=== PATIENT | male | born 1965 | race Caucasian/White ===

== ENCOUNTER 2020-05-17 10:00 | Outpatient (RCR) | payer MEDICARE, MEDICAID, SELFPAY ==
--- NOTE | 2020-05-17 14:48 | MHC.OT.DC ---
[address] [phone] F: [phone] Occupational Therapy Discharge Note Provider: Orestes Joy Diagnosis: R HAND OA Date of Surgery: Date of Evaluation: 04/20/20 Date of Discharge: 05/17/20 Treatments to Date: 5 Discharge Status: Achieved Goals Improved Function Independent with HEP Discharge Summary: MR. LORA WAS SEEN AND PROVIDED WITH EDUCATION ON OA MANAGEMENT. OVERALL, HIS FUNCTIONAL ABILITIES AND STRENGTH INCREASED. HE WAS INSTRUCTED ON JOINT PROTECTION AND ACTIVITY MODIFICATION WITH DAILY ACTIVITIES. HE REPORTS INTEREST IN PURCHASING A HOME PARAFFIN UNIT AND KINESIOTAPE FOR SELF TAPING, RIGHT INDEX AND MIDDLE FINGER. FABRICATION OF PIP BLOCKING SPLINTS WAS ALSO TRIALED FOR NIGHT WEAR. NO FURTHER OT SERVICES INDICATED AT THIS TIME. D/C TO HOME MAINTENANCE PROGRAM. Electronically Signed By: ERIC BASILIO M.ED, OTR/L Please Sign and return to therapist, thank you for your referral.
== END 2020-05-19 08:35 | disposition other institution (70) ==
LOC: HO.OT 10:00
PROVIDERS: PCP Internal Medicine; Visit Provider Student in an Organized Health Care Education/Training Program
DX: M19.041 Primary osteoarthritis, right hand (principal); M19.042 Primary osteoarthritis, left hand
CPT/HCPCS: 29130; 97035; 97110; 97760

== ENCOUNTER 2020-06-07 08:09 | Outpatient (REF) | payer MEDICARE, MEDICAID, SELFPAY ==
[2020-06-07 10:11] LABS: MANUAL DIFF FLAG NO
[2020-06-07 10:26] LABS: Basophils Percent Auto 0.8 % (0-2); Eosinophils Absolute Auto 0.2 X10*3/uL (0.0-0.4); Eosinophils Percent Auto 4.7 % (0-4); Hematocrit 40.9 % (42-52); Hemoglobin 13.5 g/dl (14.0-18.0); Imm Gran Abs Auto 0.01 X10*3/uL (0.00-0.03); Imm Gran Pct Auto 0.3 % (0.0-0.4); Lymphocytes Absolute Auto 1.3 X10*3/uL (1.2-4.9); Lymphocytes Percent Auto 33.3 % (20-40); Mean Corpuscular Hemoglobin 30.7 pg (27.0-33.0); Mean Platelet Volume 11.1 fL (9.4-12.4); Monocytes Absolute Auto 0.5 X10*3/uL (0.1-1.2); Monocytes Percent Auto 11.9 % (2-11); Neutrophils Absolute Auto 1.9 X10*3/uL (2.0-8.3); Platelet Count 212 X10*3/uL (160-400); Red Cell Distribution Width 12.3 % (11.0-16.0); White Blood Count 3.9 X10*3/uL (4.8-10.8)
[2020-06-07 10:59] LABS: Alanine Aminotransferase 24 U/L (0-40); Albumin Level 4.1 g/dL (3.5-5.0); Alkaline Phosphatase 67 U/L (39-117); Anion Gap 11 (12-20); Aspartate Amino Transferase 23 U/L (5-37); Bilirubin Total 1.1 mg/dL (0.0-1.0); Blood Urea Nitrogen 12 mg/dL (9-16); Calcium 8.7 mg/dL (8.4-10.2); Carbon Dioxide 27 mmol/L (22-29); Chloride 104 mmol/L (96-108); Cholesterol 104 mg/dL; Estimated Glomerular Filt Rate > 60; Glucose Fasting 81 mg/dL (60-99); HDL Cholesterol 53 mg/dL; LDL Cholesterol Calculated 43 mg/dl; Potassium 4.2 mmol/l (3.3-5.1); Sodium 138 mmol/L (135-145); Total Protein 6.6 g/dL (6.5-8.0); Triglycerides 43 mg/dL
== END 2020-06-07 08:10 | disposition home or self-care (01) ==
LOC: HO.10HDL 08:09
PROVIDERS: Visit Provider Internal Medicine
DX: E11.9 Type 2 diabetes mellitus without complications (principal)
CPT/HCPCS: 36415; 80053; 80061; 85025

== ENCOUNTER 2020-10-22 08:42 | Outpatient (REF) | payer MEDICARE, MEDICAID, SELFPAY ==
[2020-10-22 10:56] LABS: Cholesterol 105 mg/dL; HDL Cholesterol 48 mg/dL; LDL Cholesterol Calculated 48 mg/dl; Triglycerides 48 mg/dL
== END 2020-10-22 08:43 | disposition home or self-care (01) ==
LOC: HO.10HDL 08:42
PROVIDERS: Visit Provider Internal Medicine
DX: E11.9 Type 2 diabetes mellitus without complications (principal)
CPT/HCPCS: 36415; 80061

== ENCOUNTER 2020-12-30 14:42 | Outpatient (REF) | payer MEDICARE, MEDICAID, SELFPAY ==
[2020-12-30 16:12] LABS: Alanine Aminotransferase 25 U/L (0-40); Albumin Level 4.1 g/dL (3.5-5.0); Alkaline Phosphatase 62 U/L (39-117); Anion Gap 11 (12-20); Aspartate Amino Transferase 23 U/L (5-37); Bilirubin Total 0.7 mg/dL (0.0-1.0); Blood Urea Nitrogen 16 mg/dL (9-16); Carbon Dioxide 27 mmol/L (22-29); Chloride 104 mmol/L (96-108); Estimated Glomerular Filt Rate > 60; Glucose Random 97 mg/dL (60-115); Potassium 4.1 mmol/L (3.3-5.1); Sodium 138 mmol/L (135-145); Total Protein 6.5 g/dL (6.5-8.0); Uric Acid 3.5 mg/dL (3.4-7.0)
== END 2020-12-30 14:43 | disposition home or self-care (01) ==
LOC: HO.LAB 14:42
PROVIDERS: PCP Internal Medicine; Visit Provider Student in an Organized Health Care Education/Training Program
DX: M10.9 Gout, unspecified (principal)
CPT/HCPCS: 36415; 80053; 84550

== ENCOUNTER 2021-02-28 08:16 | Outpatient (REF) | payer MEDICARE, MEDICAID, SELFPAY ==
[2021-02-28 08:48] LABS: MANUAL DIFF FLAG NO
[2021-02-28 08:59] LABS: Eosinophils Absolute Auto 0.3 X10*3/uL (0.0-0.4); Hematocrit 40.6 % (42-52); Hemoglobin 13.7 g/dl (14.0-18.0); Imm Gran Abs Auto 0.01 X10*3/uL (0.00-0.03); Imm Gran Pct Auto 0.3 % (0.0-0.4); Lymphocytes Absolute Auto 1.4 X10*3/uL (1.2-4.9); Lymphocytes Percent Auto 34.6 % (20-40); Mean Corpuscular HGB Conc 33.7 g/dl (31.0-36.0); Mean Corpuscular Hemoglobin 31.1 pg (27.0-33.0); Mean Corpuscular Volume 92.3 fL (80-98); Mean Platelet Volume 10.9 fL (9.4-12.4); Monocytes Absolute Auto 0.4 X10*3/uL (0.1-1.2); Monocytes Percent Auto 9.8 % (2-11); Neutrophils Absolute Auto 1.9 X10*3/uL (2.0-8.3); Neutrophils Percent Auto 46.3 % (45-73); Platelet Count 188 X10*3/uL (160-400); Red Cell Distribution Width 12.4 % (11.0-16.0)
[2021-02-28 09:35] LABS: Alanine Aminotransferase 25 U/L (0-40); Albumin Level 3.9 g/dL (3.5-5.0); Alkaline Phosphatase 63 U/L (39-117); Anion Gap 10 (12-20); Aspartate Amino Transferase 24 U/L (5-37); Bilirubin Total 0.8 mg/dL (0.0-1.0); Blood Urea Nitrogen 10 mg/dL (9-16); Calcium 9.4 mg/dL (8.4-10.2); Carbon Dioxide 27 mmol/L (22-29); Chloride 106 mmol/L (96-108); Cholesterol 109 mg/dL; Estimated Glomerular Filt Rate > 60; Glucose Fasting 89 mg/dL (60-99); HDL Cholesterol 51 mg/dL; LDL Cholesterol Calculated 50 mg/dl; Potassium 4.4 mmol/L (3.3-5.1); Sodium 139 mmol/L (135-145); Total Protein 6.7 g/dL (6.5-8.0); Triglycerides 43 mg/dL
== END 2021-02-28 08:17 | disposition home or self-care (01) ==
LOC: HO.LAB 08:16
PROVIDERS: PCP Internal Medicine; Visit Provider Internal Medicine
DX: Z00.00 Encounter for general adult medical examination without abnormal findings (principal); E11.9 Type 2 diabetes mellitus without complications
CPT/HCPCS: 36415; 80053; 80061; 85025

== ENCOUNTER 2021-03-18 09:34 | Outpatient (REF) | payer MEDICARE, MEDICAID, SELFPAY ==
[2021-03-18 11:43] LABS: Prostate Specific Antigen 1.72 ng/mL (<0.05-4.0)
== END 2021-03-18 09:35 | disposition home or self-care (01) ==
LOC: HO.LAB 09:34
PROVIDERS: PCP Nurse Practitioner Family; Visit Provider Nurse Practitioner Family
DX: Z12.5 Encounter for screening for malignant neoplasm of prostate (principal)
CPT/HCPCS: 36415; 84153

== ENCOUNTER → 2021-04-28 10:08 | Outpatient (BNVA) | payer MEDICARE, MEDICAID, SELFPAY | PROVIDERS: PCP Internal Medicine; Referring Provider Internal Medicine; Visit Provider Nurse Practitioner Family | DX: M89.49 Other hypertrophic osteoarthropathy, multiple sites (principal) | CPT/HCPCS: 99212 ==

== ENCOUNTER 2021-09-20 08:07 | Outpatient (REF) | payer MEDICARE, MEDICAID, SELFPAY ==
[2021-09-20 10:30] LABS: Cholesterol 130 mg/dL; HDL Cholesterol 62 mg/dL; LDL Cholesterol Calculated 59 mg/dl; Triglycerides 47 mg/dL
== END 2021-09-20 08:08 | disposition home or self-care (01) ==
LOC: HO.10HDL 08:07
PROVIDERS: Visit Provider Internal Medicine
DX: Z00.00 Encounter for general adult medical examination without abnormal findings (principal)
CPT/HCPCS: 36415; 80061

== ENCOUNTER → 2021-12-06 10:14 | Outpatient (REF) | payer MEDICARE, MEDICAID, SELFPAY ==
--- NOTE | 2021-12-06 10:18 | CA_ITS ---
Acquisition Time: 2021-12-06 10:30:10 Total Exercise Time: 00:08:01 Test Indications: CP Medications: SEE CHART Protocol: RAUL Max HR: 136 BPM 83% of Pred: 162 BPM Max BP: 184/038 mmHG Max Work Load: 10.1 METS Exercise stress test with exercise 8 min 1 sec of Raul protocol, achieving 84% MPHR, with report of 3/10 mid chest tightness, mild sob, lreport of ightheadedness at peak, with ioccassional isolated during exercise, increasing ventricular ectopy in stage 3 with ventricular cuplet and triplet at peak exercise, then ventricular trigeminy in early recovery with another ventricular triplet at 2 min recovery, then PVCs go back to occassional, with normotensive response to exercise, without EKG changes meeting criteria for ischemia at acheived workload. In recovery his chest tightness gradually lessened and resolved by 10 min. Test reviewed with Dr Boss. Msg sent to his PCP with report and recommendation for nuclear stress test for further evaluation for ischemia. Referred By: Raysa Damon Overread By: ROSHAN DUNLAP
== END ==
LOC: HO.CARD 10:14
PROVIDERS: PCP Internal Medicine; Visit Provider Nurse Practitioner Family
DX: R07.89 Other chest pain (principal)
CPT/HCPCS: 93017

== ENCOUNTER → 2022-01-03 08:59 | Outpatient (REF) | payer MEDICARE, MEDICAID, SELFPAY ==
--- NOTE | ~2022-01-03 | NM_ITS ---
Myocardial perfusion study Indication: Chest pain to evaluate for myocardial ischemia Technique: The patient was brought in for a Lexiscan perfusion study on 01/03/2022. Patient performed low-level exercise and was injected 0.4 mg of Lexiscan intravenously. Within a minute of injection, 35 mCi of sestamibi was given intravenously. Images were obtained using the SPECT gamma camera interlaced with the gating device. Images were obtained in supine position. Resting perfusion study was performed on 01/05/2022. Patient was administered 35 mCi of sestamibi intravenously at rest. Images were then obtained in supine position. Images obtained with and without CT attenuation. Total DLP 102 mGy-cm. Images were processed with the software and compared side to side in short axis, horizontal long axis and vertical long axis views. Findings: The stress perfusion study showed non attenuated images show mildly reduced uptake in the mid and apical portion of inferior wall and moderate to severely reduced uptake in the basal inferior wall as well as moderately reduced uptake in the apex and mildly reduced uptake in the inferoseptal wall of the LV myocardium. Attenuation corrected images show normalized uptake in the inferior wall and moderately reduced uptake in the apex of the LV myocardium.. The gated study shows low normal LV systolic function with calculated LVEF of 53%. LV cavity is mildly dilated size. The gated study shows normal wall thickening and contraction of segments. Resting study shows no change in perfusion pattern compared to stress perfusion study. Gating at rest reveals normal systolic wall motion with ejection fraction at 44%. The findings are consistent with no clear reversible defect suggestive. Fixed defect may suggest nontransmural infarct although attenuation artifact is also likely.. NM/NM cardiolite stress test Impression: 1. Myocardial perfusion imaging study shows no evidence of ischemia 2. Gated LVEF is 53% with stress and 44% at rest 3. Transient ischemic dilatation not present EKG is nondiagnostic for ischemia
--- NOTE | 2022-01-03 09:01 | CA_ITS ---
Acquisition Time: 2022-01-03 09:06:38 Total Exercise Time: 00:02:00 Test Indications: Abnormal Treadmill Test Medications: ALLOPURINOL ASA ARPIPRAZOLE ATORVASTATIN LISINOPRIL LORATADINE Protocol: LEXISCAN Max HR: 094 BPM 58% of Pred: 162 BPM Max BP: 124/066 mmHG Max Work Load: 1.6 METS Pharmacological stress test with Lexiscan injection, while walking slow on treadmill, with report of 4/10 chest tightness, with occassional isolated PVC, with normotensive response to injection, with nondiagnostic EKG for ischemia. In recovery he was treated with Aminophylline 75mg IVP to reverse Lexiscan with resolution of chest tightness. Nuclear images pending. Test reviewed with Dr Carcamo. Referred By: Raysa Damon Overread By: ROSHAN DUNLAP
== END ==
LOC: HO.CARD 08:59
PROVIDERS: PCP Internal Medicine; Visit Provider Nurse Practitioner Family
DX: R07.89 Other chest pain (principal)
CPT/HCPCS: 78452; 93017; A9500; J0280; J2785

== ENCOUNTER → 2022-01-23 07:19 | Outpatient (REF) | payer MEDICARE, MEDICAID, SELFPAY ==
--- NOTE | 2022-01-23 07:22 | CA_ITS ---
Transthoracic Echocardiogram Patient (Last, First, Middle): Shamir Oconnell O Gender: Male Date of : 1965 Age: 56 Procedure Date: 01/23/2022 Procedure Type: Transthoracic Echocardiogram Location: OP Height: 185.42 cm Weight: 95.71 kg BSA: 2.20 m2 Heart Rate: bpm BP: 114 / 85 mmHg Appliance Service Technician: TO/YR Referring MD: Bell Ayala RIFLE CASE REPAIRER-C Symptoms: R07.89 - Other chest pain Study Quality: Fair ECG Rhythm: Sinus Conclusions: - The left ventricular systolic function is mildly decreased. The visually estimated ejection fraction is between 40-45%. - Moderately increased right ventricular cavity size. - No obvious valvular pathology seen on this study. Findings Left Ventricle Normal left ventricular cavity size. There is normal left ventricular wall thickness. The left ventricular systolic function is mildly decreased. The visually estimated ejection fraction is between 40-45%. There is mild global hypokinesis. Diastolic function is normal for age. Right Ventricle Moderately increased right ventricular cavity size. There is normal right ventricular systolic function. Atria Both atria are normal in size. Aortic Valve There is a normal trileaflet aortic valve. There is no aortic valve stenosis. There is no aortic valve regurgitation. Mitral Valve The mitral valve appears normal. There is trace mitral valve regurgitation. There is no mitral valve stenosis. Pulmonic Valve The pulmonic valve is likely normal. Tricuspid Valve There is trace tricuspid valve regurgitation. The pulmonary artery systolic pressure is normal. Great Vessels The asc aorta and aortic arch are normal in size. Venous The inferior vena cava was not well visualized. The inferior vena cava is normal in size. Pericardium/Pleural There is no evidence of pericardial effusion. Prior Study Comparison Changes noted compared to prior study dated: 02/24/2010. Decrease in LVEF. Recommendations, Care & Conclusions No obvious valvular pathology seen on this study. Measurements 2D Linear Measurements IVSd: 0.93 0.6-0.9/0.6-1.0 cm LVIDd: 5.16 3.9-5.3/4.2-5.9 cm LVIDd Index: 2.35 2.4-3.2/2.2-3.1 cm/m2 LVIDs: 3.81 2.0-3.6 cm LVPWd: 0.85 0.7-1.1 cm LA Diam: 3.80 2.7-3.8/3.0-4.0 cm LAIDs Index: 1.73 1.5-2.3 cm/m2 LV Mass: 205.04 67-162/88-224 g LV Mass Index: 93.20 43-95/49-115 g/m2 LVOT Diam: 2.40 3.0+(-)1.3 cm 2D Systolic Function EF 4C: 46.60 >55% EF 2C: 58.90 >55% EF BiP: 52.80 >55% Mitral Valve MV Pk E: 0.60 MV PK A: 0.84 MV Decel Time: 290.00 E/A: 0.70 E'Lateral: 11.10 E'Medial: 8.81 E/E' Med: 6.80 E/E' Lat: 5.40 PHT: 85.00 MVA PHT: 2.59 Decel Beckham: 2.07 Aortic Valve AoV Pk Raza: 1.11 AoV Mn Raza: 0.85 AoV VTI: 0.28 AoV Pk Grad: 5.00 Aov Mn Grad: 3.00 JAZ Cont.VTI: 3.83 LVOT LVOT Pk Raza: 1.04 LVOT Mn Raza: 0.70 LVOT VTI: 0.24 LVOT Pk Grad: 4.00 LVOT Mn Grad: 2.00 LVOT Diam: 2.40 LVOT Area: 4.52 Diastolic Function MV Pk E: 0.60 MV Pk A: 0.84 E/A: 0.70 E'Medial: 8.81 E/E' Med: 6.80 E' Laterial: 11.10 E/E' Lat: 5.40 Right Ventricle TAPSE (mm): 22.90 TVS' Raza: 13.30 Tricuspid Valve TR Pk Raza: 2.44 TR Pk Grad: 24.00 RA Press: 3.00 RVSP: 27.00 Great Vessels Aorta Sinus of Valsalva: 3.85 2.0-3.[address] [place]: 3.15 1.7-3.4 cm Ao Asc: 3.50 2.1-3.4 cm Ao Arch: 3.10 Updated in Other Vendor System with Status of Final Heladio Carcamo MD electronically signed on 01/23/2022 10:48:48 AM with status of Final
== END ==
LOC: HO.CARD 07:19
PROVIDERS: PCP Internal Medicine; Visit Provider Nurse Practitioner Family
DX: R07.89 Other chest pain (principal); I49.3 Ventricular premature depolarization; I10 Essential (primary) hypertension
CPT/HCPCS: 93306

== ENCOUNTER → 2022-03-02 13:36 | Outpatient (BNVA) | payer MEDICARE, MEDICAID, SELFPAY | PROVIDERS: PCP Internal Medicine; Referring Provider Nurse Practitioner Family; Visit Provider Internal Medicine Cardiovascular Disease | DX: I49.3 Ventricular premature depolarization (principal); I20.8 Other forms of angina pectoris; I42.9 Cardiomyopathy, unspecified | CPT/HCPCS: 99202 ==

== ENCOUNTER 2022-03-20 07:37 | Outpatient (REF) | payer MEDICARE, MEDICAID, SELFPAY ==
[2022-03-20 10:44] LABS: Hematocrit 40.9 % (42.0-52.0); Hemoglobin 13.6 g/dl (14.0-18.0); Mean Corpuscular HGB Conc 33.3 g/dl (31.0-36.0); Mean Corpuscular Hemoglobin 30.1 pg (27.0-33.0); Mean Corpuscular Volume 90.5 fL (80.0-98.0); Mean Platelet Volume 11.6 fL (9.4-12.4); Platelet Count 193 X10*3/uL (160-400); Red Blood Count 4.52 X10*6/uL (4.60-5.80); Red Cell Distribution Width 12.6 % (11.0-16.0); White Blood Count 4.3 X10*3/uL (4.8-10.8)
[2022-03-20 10:50] LABS: Prothrombin Time 11.5 SEC (10.0-13.1)
[2022-03-20 10:59] LABS: Anion Gap 11 (12-20); Blood Urea Nitrogen 14 mg/dL (9-16); Calcium 8.8 mg/dL (8.4-10.2); Carbon Dioxide 26 mmol/L (22-29); Chloride 106 mmol/L (96-108); Cholesterol 105 mg/dL; Estimated Glomerular Filt Rate > 60; Glucose Random 87 mg/dL (60-115); HDL Cholesterol 44 mg/dL; LDL Cholesterol Calculated 51 mg/dl; Potassium 4.2 mmol/L (3.3-5.1); Sodium 139 mmol/L (135-145); Triglycerides 53 mg/dL
== END 2022-03-20 07:38 | disposition home or self-care (01) ==
LOC: HO.10HDL 07:37
PROVIDERS: Absent Provider Internal Medicine; Visit Provider Internal Medicine Cardiovascular Disease
DX: R07.89 Other chest pain (principal); I20.8 Other forms of angina pectoris; I42.9 Cardiomyopathy, unspecified
CPT/HCPCS: 36415; 80048; 80061; 85027; 85610

== ENCOUNTER → 2022-04-05 12:36 | Outpatient (BNVA) | payer MEDICARE, MEDICAID, SELFPAY | PROVIDERS: PCP Internal Medicine; Referring Provider Internal Medicine; Visit Provider Internal Medicine Cardiovascular Disease | DX: I49.3 Ventricular premature depolarization (principal); I42.9 Cardiomyopathy, unspecified | CPT/HCPCS: 99212 ==

== ENCOUNTER → 2022-04-07 13:00 | Outpatient (REF) | payer MEDICARE, MEDICAID, SELFPAY ==
--- NOTE | 2022-04-07 13:27 | ECG_ITS ---
Hook-up date: 2022-04-07 12:10:00 Duration: 47:59:00 Test Indications: PVC Medications: [id number] QRS complexes 6773 Ventricular ectopics which represent 3 % of total QRS comp. 16 Supraventricular ectopics which represent <1 % of total QRS comp. * Paced QRS complexs which represent % of total QRS comp. VENTRICULAR ECTOPY 6754 Isolated 3 Bigeminal Cycles 8 Couplets 1 Runs 3 Beats in Runs 3 Beats LONGEST at 172 BPM at 08:00:21 2022-04-08 3 Beats FASTEST at 172 BPM at 08:00:21 2022-04-08 SUPRAVENTRICULAR ECTOPY 16 Isolated 0 Couplets 0 Runs 0 Beats in Runs * Beats LONGEST at * BPM at :: -- * Beats FASTEST at * BPM at :: -- HEART RATES 48 MIN at 22:11:24 2022-04-07 64 AVG 98 MAX at 11:50:26 2022-04-08 LONGEST RR 1.2320 secs at 04:43:35 2022-04-09 S-T LEVELS Channel 1 - 128 mm at 12:10:00 2022-04-07 - 128 mm at 12:10:00 2022-04-07 Channel 2 - 128 mm at 12:10:00 2022-04-07 - 128 mm at 12:10:00 2022-04-07 Channel 3 - 128 mm at 03:12:91 -- - 128 mm at 03:12:91 Underlying rhythm is sinus; Average ventricular rate 64/min; range 48-98/min; Frequent ventricular ectopy; burden 4%; mostly isolated, some couplets, one run of 3 beats; Rare supraventricular ectopy; Patient diary with reported symptoms including chest pressure, lightheaded, pounding, but no clear arrhythmias at those times. Referred By: Travis Boss Overread By: KYARA MENDIOLA
== END ==
LOC: HO.CARD 13:00
PROVIDERS: PCP Internal Medicine; Visit Provider Internal Medicine Cardiovascular Disease
DX: I49.3 Ventricular premature depolarization (principal)
CPT/HCPCS: 93225; 93226

== ENCOUNTER → 2022-04-28 09:35 | Outpatient (BNVA) | payer MEDICARE, MEDICAID, SELFPAY | PROVIDERS: PCP Internal Medicine; Visit Provider Nurse Practitioner Family | DX: M19.041 Primary osteoarthritis, right hand (principal); M19.042 Primary osteoarthritis, left hand | CPT/HCPCS: 99212 ==

== ENCOUNTER 2022-05-23 14:44 | Outpatient (REF) | payer MEDICARE, MEDICAID, SELFPAY ==
[2022-05-23 15:09] LABS: Appearance Urine Clear; Color Urine Yellow; Glucose Urine UA Negative (Negative); Leukocyte Esterase Urine Negative (Negative); Nitrite Urine Negative (Negative); PH 6.5 (5.0-9.0); Specific Gravity - Urine <= 1.005 (1.005-1.025); Urine Blood Negative (Negative); Urine Ketones Negative (Negative); Urine Protein Negative (Neg-Trace)
== END 2022-05-23 14:45 | disposition home or self-care (01) ==
LOC: HO.LAB 14:44
PROVIDERS: PCP Internal Medicine; Visit Provider Internal Medicine
DX: N39.0 Urinary tract infection, site not specified (principal)
CPT/HCPCS: 81003

== ENCOUNTER 2022-08-25 09:08 | Outpatient (REF) | payer MEDICARE, MEDICAID, SELFPAY ==
[2022-08-25 10:54] LABS: MANUAL DIFF FLAG NO
[2022-08-25 11:03] LABS: Basophils Percent Auto 1.1 % (0-2); Eosinophils Absolute Auto 0.1 X10*3/uL (0.0-0.4); Hematocrit 42.9 % (42.0-52.0); Hemoglobin 14.6 g/dl (14.0-18.0); Lymphocytes Absolute Auto 1.2 X10*3/uL (1.2-4.9); Lymphocytes Percent Auto 32.8 % (20-40); Mean Corpuscular Hemoglobin 30.8 pg (27.0-33.0); Mean Corpuscular Volume 90.5 fL (80.0-98.0); Mean Platelet Volume 11.3 fL (9.4-12.4); Monocytes Absolute Auto 0.3 X10*3/uL (0.1-1.2); Monocytes Percent Auto 8.3 % (2-11); Neutrophils Percent Auto 54.8 % (45-73); Platelet Count 198 X10*3/uL (160-400); Red Blood Count 4.74 X10*6/uL (4.60-5.80); Red Cell Distribution Width 12.3 % (11.0-16.0); White Blood Count 3.7 X10*3/uL (4.8-10.8)
[2022-08-25 11:32] LABS: Alanine Aminotransferase 42 U/L (0-40); Albumin Level 4.1 g/dL (3.5-5.0); Alkaline Phosphatase 61 U/L (39-117); Anion Gap 12 (12-20); Aspartate Amino Transferase 29 U/L (5-37); Bilirubin Total 1.4 mg/dL (0.0-1.0); Blood Urea Nitrogen 12 mg/dL (9-16); Calcium 9.3 mg/dL (8.4-10.2); Carbon Dioxide 27 mmol/L (22-29); Chloride 103 mmol/L (96-108); Cholesterol 122 mg/dL; Estimated Glomerular Filt Rate > 60; Glucose Fasting 87 mg/dL (60-99); HDL Cholesterol 51 mg/dL; LDL Cholesterol Calculated 59 mg/dl; Potassium 4.2 mmol/L (3.3-5.1); Sodium 138 mmol/L (135-145); Total Protein 6.8 g/dL (6.5-8.0); Triglycerides 64 mg/dL
[2022-08-25 11:42] LABS: Thyroid Stimulating Hormone 0.92 uIU/mL (0.32-4.0)
== END 2022-08-25 09:09 | disposition home or self-care (01) ==
LOC: HO.10HDL 09:08
PROVIDERS: Visit Provider Internal Medicine
DX: E03.9 Hypothyroidism, unspecified (principal); E78.5 Hyperlipidemia, unspecified; N28.9 Disorder of kidney and ureter, unspecified; D64.9 Anemia, unspecified
CPT/HCPCS: 36415; 80053; 80061; 84443; 85025

== ENCOUNTER 2023-02-07 07:38 | Outpatient (REF) | payer MEDICARE, MEDICAID, SELFPAY ==
[2023-02-07 12:38] LABS: Cholesterol 101 mg/dL; HDL Cholesterol 46 mg/dL; LDL Cholesterol Calculated 45 mg/dl; Triglycerides 52 mg/dL
== END 2023-02-07 07:39 | disposition home or self-care (01) ==
LOC: HO.10HDL 07:38
PROVIDERS: Visit Provider Internal Medicine
DX: E78.5 Hyperlipidemia, unspecified (principal)
CPT/HCPCS: 36415; 80061

== ENCOUNTER 2023-02-22 10:30 | Outpatient (AMB) | payer MEDICARE, MEDICAID, SELFPAY ==
[2023-02-22 10:30] VITALS: BP 128/82; PULSE 67; O2SAT 98
--- NOTE | 2023-02-22 10:30 | MHC.PC.OV ---
Vital Signs 02/22/23 10:30 Height 6 ft Weight 221 lb BMI 30.0 BP 128/82 Blood Pressure Location Lt brachial Position Sitting Pulse 67 Pulse Source Pulse Oximeter Temp Source Skin Pulse Oximetry (%) 98 Oxygen Delivery Method Room Air Intake Visit Reasons: 3month f/u Distribution Sales Representative Required: No Allergies No Known Allergies [No Known Allergies*] Allergy (Verified 02/22/23 10:34) Medication List - Last Reconciled 02/22/23 by Petros Campbell MD allopurinol 300 mg PO DAILY aripiprazole 10 mg PO DAILY aspirin (Adult Low Dose Aspirin) 81 mg PO .every other day atorvastatin 20 mg PO DAILY betamethasone dipropionate 0.05% 1 appl topical BID lisinopril 20 mg PO BID loratadine (Allergy Relief (loratadine)) 10 mg PO DAILY metoprolol succinate ER (Toprol XL) 12.5 mg (1/2 x 25 mg) PO DAILY Tobacco use date assessed: 02/22/23 Dental Screening Dental Screen Date: 02/22/23 Did you have a dental visit in the last 12 months?: Yes Did you have a dental problem in the last 6 months where you did not have access to dental care?: No Was dental information given to patient?: Patient has dentist HPI 3month f/u HPI Details HTN and gout and hyperlip; doing well; compliant [facility] Medical History Gout Hyperlipidemia Hypertension Physical exam Screening for prostate cancer Surgical History History of colonoscopy Family History Father Past heart attack Mother Cancer Social History Housing: House Alcohol intake: never Patient Tobacco Use Status: Never used Tobacco e-Cigarette/Vaping Use: Never Used Second Hand Smoke Exposure: No service: No Current occupational status: disabled Cognitive needs: No Hearing needs: No Vision needs: Yes Questionnaire PHQ-9 Over the last 2 weeks, how often have you been bothered by any of the following problems? Depression Screening Interpretation: Negative Source: Developed by Drs. Warren Gonzalez, Brit Castro, Massimo Harvey and colleagues, with an educational sal from [employer]. Thrive Questionnaire Date Thrive assessed: 08/23/22 Currently or been in a relationship where the following occur: no concerns reported AUDIT C Alcohol Use Questionnaire (AUDIT-C) 1. How often do you have a drink containing alcohol?: Never Total Score: 0 Score Reviewed/Action Taken: Yes LILLIAM-7 AMB Questionnaire LILLIAM-7 Date LILLIAM - 7 assessed: 08/23/22 Source: Developed by Drs. Warren Gonzalez, Brit Castro, Massimo Harvey and colleagues, with an educational sal from [employer]. Review of Systems Const Denies chills, Denies headache(s) and Denies weight loss ENT Denies headache(s) Card Denies chest pain, Denies syncope, Denies irregular heart rhythm and Denies dyspnea Resp Denies chest congestion, Denies cough and Denies dyspnea GI Denies abdominal pain, Denies change in stool character, Denies nausea and Denies vomiting Musc Denies deformity and Denies joint swelling Neuro Denies syncope and Denies headache(s) Physical exam (Primary Care) Vital Signs: Last Vital Signs Pulse 67 02/22/23 10:30 BP 128/82 02/22/23 10:30 Pulse Ox 98 02/22/23 10:30 Oxygen Delivery Method Room Air 02/22/23 10:30 BMI result Body Mass Index 30.0 Tobacco/Smoking Status: Tobacco use Status Tobacco use date assessed 02/22/23 02/22/23 10:37 Patient Tobacco Use Status Never used Tobacco 02/22/23 10:37 e-Cigarette/Vaping Use Never Used 02/22/23 10:37 Depression Screening Interpretation: Negative Thrive Assessment: Date of Thrive Assessment Date Thrive assessed 08/23/22 02/22/23 10:37 Currently or been in a relationship where the following occur: no concerns reported Const General: cooperative, healthy appearing and comfortable Resp Auscultation: clear to auscultation bilaterally Cardio Jugular venous distension: no JVD Rate: regular rate Rhythm: regular rhythm GI Inspection: Yes normal to inspection Assessment and Plan Assessment & Plan (1) Gout: Code(s): M10.9 - Gout, unspecified Plan: stable; same rx (2) Hyperlipidemia: Code(s): E78.5 - Hyperlipidemia, unspecified Plan: stable; same rx (3) Hypertension: Code(s): I10 - Essential (primary) hypertension Plan: stable; same rx Orders: Orders Lipid Panel Today E78.5 - Hyperlipidemia, unspecified Thyroid Stimulating Hormone Today E03.9 - Hypothyroidism, unspecified Uric Acid Today M10.9 - Gout, unspecified Coding Level of Care Code Est Pt Level 4 (72617) Diagnoses Gout M10.9 Hyperlipidemia E78.5 Hypertension I10
== END 2023-02-22 10:47 | disposition home or self-care (01) ==
LOC: HO.HMGH 10:30
PROVIDERS: PCP Internal Medicine; Visit Provider Internal Medicine
DX: M10.9 Gout, unspecified (principal); E78.5 Hyperlipidemia, unspecified; I10 Essential (primary) hypertension
CPT/HCPCS: 99214

== ENCOUNTER → 2023-03-28 10:35 | Outpatient (REF) | payer MEDICARE, MEDICAID, SELFPAY ==
--- NOTE | 2023-03-28 10:39 | CA_ITS ---
Transthoracic Echocardiogram Patient (Last, First, Middle): Shamir Oconnell O Gender: Male Date of : 1965 Age: 57 Procedure Date: 03/28/2023 Procedure Type: Transthoracic Echocardiogram Location: OP Height: 185.42 cm Weight: 97.98 kg BSA: 2.22 m2 Heart Rate: 61 bpm BP: 150 / 60 mmHg Performing Arts Technicians: AYANNA Referring MD: Travis Boss MD Taxicab Coordinator: Travis Boss MD Symptoms: I42.9 - Cardiomyopathy, unspecified Study Quality: Adequate w contrast ECG Rhythm: Sinus Conclusions: - 1. Mildly reduced LV ejection fraction 45-50% with grade 1 diastolic dysfunction 2. Normal cardiac valvular Doppler 3. Normal RV systolic pressure 4. No gross pericardial effusion Findings Procedure Information Contrast agent, definity, is being given per protocol without apparent complications. Left Ventricle Normal left ventricular cavity size. There is normal left ventricular wall thickness. The left ventricular systolic function is mildly decreased. The visually estimated ejection fraction is between 45-50%. Spectral Doppler is indicative of an impaired relaxation filling pattern. E/E prime ratio is <8, consistent with normal filling pressures. Evidence suggests grade I (mild) diastolic dysfunction. Right Ventricle Normal right ventricular cavity size and systolic function. Atria The left atrium is normal in size. Interatrial shunt cannot be excluded. The right atrium is normal in size. Aortic Valve Normal aortic valve structure and function. There is no aortic valve stenosis. There is no aortic valve regurgitation. Mitral Valve There is mild anterior and posterior mitral leaflet thickening. There is mild mitral annular calcification. There is trace mitral valve regurgitation. There is no mitral valve stenosis. Pulmonic Valve The pulmonic valve is likely normal. There is trace to mild pulmonic valve regurgitation. Tricuspid Valve Normal tricuspid valve structure. There is trace tricuspid valve regurgitation. The right ventricular systolic pressure is normal. The right ventricular systolic pressure is 28 mmHg. Normal right atrial pressure. There is no evidence of pulmonary hypertension. Great Vessels All visible segments of the aorta are normal in size. The pulmonary artery was not well visualized. Venous The inferior vena cava is normal in size and collapses greater than 50% with inspiration. Pericardium/Pleural There is no evidence of pericardial effusion. Prior Study Comparison Changes noted compared to prior study dated: 01/23/2022. LV systolic function is marginally improved Measurements 2D Linear Measurements IVSd: 1.37 0.6-0.9/0.6-1.0 cm LVIDd: 5.28 3.9-5.3/4.2-5.9 cm LVIDd Index: 2.38 2.4-3.2/2.2-3.1 cm/m2 LVIDs: 3.64 2.0-3.6 cm LVPWd: 0.78 0.7-1.1 cm LA Diam: 3.70 2.7-3.8/3.0-4.0 cm LAIDs Index: 1.67 1.5-2.3 cm/m2 LV Mass: 273.84 67-162/88-224 g LV Mass Index: 123.35 43-95/49-115 g/m2 LVOT Diam: 2.40 3.0+(-)1.3 cm 2D Systolic Function EF 4C: 55.30 >55% EF 2C: 47.90 >55% EF BiP: 49.50 >55% Mitral Valve MV Pk E: 0.54 MV PK A: 0.60 MV Decel Time: 168.00 E/A: 0.90 E'Lateral: 9.25 E'Medial: 8.81 E/E' Med: 6.20 E/E' Lat: 5.90 PHT: 49.00 MVA PHT: 4.49 Decel [place]: 3.24 Aortic Valve AoV Pk Raza: 1.03 AoV Pk Grad: 4.00 JAZ: 4.78 LVOT LVOT Pk Raza: 0.97 LVOT Mn Raza: 0.68 LVOT VTI: 0.21 LVOT Pk Grad: 4.00 LVOT Mn Grad: 2.00 LVOT Diam: 2.40 LVOT Area: 4.52 Diastolic Function MV Pk E: 0.54 MV Pk A: 0.60 E/A: 0.90 E'Medial: 8.81 E/E' Med: 6.20 E' Laterial: 9.25 E/E' Lat: 5.90 Right Ventricle TAPSE (mm): 25.30 TVS' Raza: 12.60 Tricuspid Valve TR Pk Raza: 2.23 TR Pk Grad: 20.00 RA Press: 8.00 RVSP: 28.00 Great Vessels Aorta Ao Asc: 3.30 2.1-3.4 cm Pulmonary Veins Pulm Vein S/D 1.40 Pulmonary Valve PV Pk Raza: 1.08 Peak PV Grad: 5.00 Updated in Other Vendor System with Status of Final Travis Boss MD electronically signed on 03/30/2023 11:21:38 AM with status of Final
== END ==
LOC: HO.CARD 10:35
PROVIDERS: PCP Internal Medicine; Visit Provider Internal Medicine Cardiovascular Disease
DX: I42.9 Cardiomyopathy, unspecified (principal)
CPT/HCPCS: 93306; Q9957

== ENCOUNTER → 2023-03-28 10:39 | Outpatient (BNV) | payer MEDICARE, MEDICAID, SELFPAY | PROVIDERS: PCP Internal Medicine; Visit Provider Internal Medicine Cardiovascular Disease | DX: I37.1 Nonrheumatic pulmonary valve insufficiency (principal); I34.81 Nonrheumatic mitral (valve) annulus calcification | CPT/HCPCS: 93306 ==

== ENCOUNTER 2023-04-10 12:40 | Outpatient (AMB) | payer MEDICARE, MEDICAID, SELFPAY ==
--- NOTE | 2023-04-10 12:42 | A.OFFVIS_ITS ---
Intake Vital Signs 04/10/23 12:43 Height 6 ft Weight 229 lb 4.492 oz BMI 31.1 BP 128/76 Blood Pressure Location Lt brachial Position Sitting Pulse 66 Intake Visit Reasons: 1 year follow up, after echo Intake Note: 1 year follow-up after echo wtih ekg feeling ok Improvement Analyst Required: No Allergies No Known Allergies [No Known Allergies*] Allergy (Verified 02/22/23 10:34) Medication List - Last Reconciled 04/10/23 by Travis Boss MD allopurinol 300 mg PO DAILY aripiprazole 10 mg PO DAILY aspirin (Adult Low Dose Aspirin) 81 mg PO .every other day atorvastatin 20 mg PO DAILY betamethasone dipropionate 0.05% 1 appl topical BID lisinopril 20 mg PO BID loratadine (Allergy Relief (loratadine)) 10 mg PO DAILY metoprolol succinate ER 12.5 mg (1/2 x 25 mg) PO DAILY 90 days HPI HPI Comments History of Present Illness Details Luis Antonio comes for follow-up. He has been doing well from cardiac perspective. Denies any exertional symptoms. Occasionally at nighttime he feels chest pressure but he can notice it. Denies any palpitations, lightheadedness, syncope. No orthopnea, PND, leg edema. Denies worsening shortness of breath or chest discomfort with exertion. Takes all his medications. His most recent echocardiogram showed mildly improved LV ejection fraction to 45-50%. [facility] Medical History Screening for prostate cancer Gout Hyperlipidemia Hypertension Physical exam Surgical History History of colonoscopy Family History Father Past heart attack Mother Cancer Social History Housing: House Alcohol intake: never Patient Tobacco Use Status: Never used Tobacco e-Cigarette/Vaping Use: Never Used Second Hand Smoke Exposure: No service: No Current occupational status: disabled Cognitive needs: No Hearing needs: No Vision needs: Yes Review of Systems Const Denies chills, Denies fatigue, Denies fever(s), Denies frequent falls, Denies weakness, Denies weight gain and Denies weight loss ENT Denies dizziness Card Denies chest pain, Denies leg edema, Denies lightheadedness, Denies palpitations, Denies dyspnea, Denies dyspnea on exertion, Denies orthopnea and Denies other (loss of consciousness) Resp Denies cough, Denies dyspnea and Denies dyspnea on exertion GI Denies hematochezia and Denies change in stool character Musc Denies abnormal gait, Denies muscle weakness, Denies numbness, Denies radiating pain into limb and Denies tingling Neuro Denies Abnormal speech present, Denies abnormal gait, Denies dizziness, Denies frequent falls, Denies numbness, Denies tingling and Denies weakness Endo Denies fatigue and Denies palpitations Physical Exam Vital Signs: Last Vital Signs Pulse 66 04/10/23 12:43 BP 128/76 04/10/23 12:43 BMI result Body Mass Index 31.1 Const General: cooperative, comfortable, no acute distress, alert, awake and Physically active Nutritional Appearance: average body habitus Orientation/consciousness: patient oriented x3 Limitations: no limitations Neck Neck: Yes trachea midline, Yes supple and Yes no JVD Chest Chest palpation & inspection: normal inspection of the chest Resp Effort & Inspection: normal respiratory effort Auscultation: clear to auscultation bilaterally Cardio Jugular venous distension: no JVD Palpation: normal PMI Rate: regular rate Rhythm: abnormal rhythm with ectopic beats Heart sounds: S1 normal heart sound present, S2 normal heart sound present, no click, no gallops, no murmurs and no rubs GI Auscultation: normal bowel sounds Skin General skin exam: no rashes or lesions noted Neuro General: patient oriented x3 and no focal motor deficits Speech: No Abnormal speech present Extrem General: Yes no clubbing, cyanosis or edema Psych Appearance: grossly normal Office Procedures EKG Details: EKG shows normal sinus rhythm with frequent PVCs, unifocal, appear to be of right ventricular outflow origin [id number], Complete Assessment & Plan Assessment & Plan (1) Cardiomyopathy: Code(s): I42.9 - Cardiomyopathy, unspecified Plan: Mild LV systolic dysfunction with cardiomyopathy. Clinically without any signs or symptoms of heart failure. Continue neurohormonal modulation with metoprolol and lisinopril. Signs and symptoms of heart failure were discussed. Follow-up echocardiogram in 1 year's time. (2) PVCs (premature ventricular contractions): Code(s): I49.3 - Ventricular premature depolarization Plan: Frequent PVCs, unifocal and appear to be of RV outflow track origin. No symptoms related to it. Continue metoprolol therapy avoidance of stimulants was discussed. If there is further worsening of LV systolic function and there are persistent frequent PVCs, could consider ablation therapy. Follow up in the clinic 1 year's time, sooner p.r.n.. Thank you for allowing me to partake in his care Orders: Orders CA echo transthoracic complete 52 Weeks I42.9 - Cardiomyopathy, unspecified Coding Level of Care Code Est Pt Level 4 (47650) Diagnoses Cardiomyopathy I42.9 PVCs (premature ventricular contractions) I49.3 CPT Codes EKG - CPT: 68890-[id number], Complete ([id number])
[2023-04-10 12:43] VITALS: BP 128/76; PULSE 66; BMI 31.1
== END 2023-04-10 13:00 | disposition home or self-care (01) ==
PROVIDERS: PCP Internal Medicine; Referring Provider Internal Medicine; Visit Provider Internal Medicine Cardiovascular Disease
DX: I42.9 Cardiomyopathy, unspecified (principal); I49.3 Ventricular premature depolarization
CPT/HCPCS: 93010; 99214

== ENCOUNTER → 2023-04-10 12:40 | Outpatient (BNVA) | payer MEDICARE, MEDICAID, SELFPAY | PROVIDERS: PCP Internal Medicine; Referring Provider Internal Medicine; Visit Provider Internal Medicine Cardiovascular Disease | DX: I42.9 Cardiomyopathy, unspecified (principal); I49.3 Ventricular premature depolarization; Z79.899 Other long term (current) drug therapy | CPT/HCPCS: 93005; 99212 ==

== ENCOUNTER 2023-10-22 10:12 | Outpatient (AMB) | payer MEDICARE, MEDICAID, SELFPAY ==
[2023-10-22 10:13] VITALS: BP 130/74; PULSE 60; O2SAT 98
--- NOTE | 2023-10-22 10:13 | MHC.PC.OV ---
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: Not Required per policy Accompanied by: Self / Same As Patient Allergies hayfever Allergy (Unknown, Uncoded 10/22/23 10:18) Unknown Medication List - Last Reconciled 10/22/23 by Petros Campbell MD allopurinol 300 mg PO DAILY aripiprazole 10 mg PO DAILY aspirin (Adult Low Dose Aspirin) 81 mg PO .every other day atorvastatin 20 mg PO DAILY betamethasone dipropionate 0.05% 1 appl topical BID lisinopril 20 mg PO BID loratadine (Allergy Relief (loratadine)) 10 mg PO DAILY metoprolol succinate ER 12.5 mg (1/2 x 25 mg) PO DAILY 90 days oxholmyq-ksm-JK-lycopen-lutein 0.4 mg-300 mcg- 250 mcg ([facility] Complete Senior 50 Plus) 1 tab PO DAILY Tobacco use date assessed: 10/22/23 Dental Screening Dental Screen Date: 10/22/23 Did you have a dental visit in the last 12 months?: Yes Did you have a dental problem in the last 6 months where you did not have access to dental care?: No Was dental information given to patient?: Patient has dentist HPI Hyperlipidemia follow up HPI Details hyperlip gout and htn on rx; doing well PFSH Medical History Screening for prostate cancer Gout Hyperlipidemia Hypertension Physical exam Surgical History History of colonoscopy Family History Father Past heart attack Mother Cancer Social History Housing: House Alcohol intake: never Patient Tobacco Use Status: Never used Tobacco e-Cigarette/Vaping Use: Never Used Second Hand Smoke Exposure: No service: No Current occupational status: disabled Cognitive needs: No Hearing needs: No Vision needs: Yes (glasses) Questionnaire PHQ-9 Over the last 2 weeks, how often have you been bothered by any of the following problems? 1. Little interest or pleasure in doing things: not at all 2. Feeling down, depressed, or hopeless: not at all 3. Trouble falling or staying asleep, or sleeping too much: not at all 4. Feeling tired or having little energy: not at all 5. Poor appetite or overeating: not at all 6. Feeling bad about yourself - or that you are a failure or have let yourself or your family down: not at all 7. Trouble concentrating on things, such as reading the newspaper or watching television: not at all 8. Moving or speaking so slowly that other people could have noticed. Or the opposite - being so fidgety or restless that you have been moving around a lot more than usual: not at all 9. Thoughts that you would be better off or of hurting yourself in some way: not at all Total score: 0 Depression Screening Done: Yes 77509 - PHQ-9 Billing: Yes Source: Developed by Drs. Warren Gonzalez, Brit Castro, Massimo Harvey and colleagues, with an educational sal from [employer]. Thrive Questionnaire Date Thrive assessed: 10/22/23 I am a: Patient What is your living situation today?: I have a steady place to live Within the past 12 months, did the food you bought not last and you didn't have the money to get more?: Never true Within the past 12 months, did you worry whether your food would run out before you got money to buy more?: Never true Do you have trouble paying for medicines?: No Do you have trouble getting transportation to medical appointments?: No Do you have trouble paying your heating and electricity bill?: No Do you have trouble taking care of your child, family member or friend?: No Do you have trouble with day-to-day activities such as bathing, preparing meals, shopping, managing finances, etc.?: No Are you currently unemployed and looking for a job?: No Are you interested in more education?: No Please select the resources that you would like help with: None THRIVE Score: 0 AUDIT C Alcohol Use Questionnaire (AUDIT-C) 1. How often do you have a drink containing alcohol?: Never Total Score: 0 Score Reviewed/Action Taken: Yes LILLIAM-7 AMB Questionnaire LILLIAM-7 Date LILLIAM - 7 assessed: 10/22/23 Feeling nervous, anxious, or on edge: 0 = Not at all Not being able to stop or control worryin = Not at all Worrying too much about different things: 0 = Not at all Trouble relaxin = Not at all Being so restless that it is hard to sit still: 0 = Not at all Becoming easily annoyed or irritable: 0 = Not at all Feeling afraid as if something awful might happen: 0 = Not at all Total LILLIAM-7 score (0-4 normal; 5-9 mild; 10-14 moderate; 15-21 severe): 0 Source: Developed by Drs. Warren Gonzalez, Brit Castro, Massimo Harvey and colleagues, with an educational sal from [employer]. LILLIAM-7 Assessment Billing LILLIAM-7 Assessment Tool: LILLIAM-7 Assessment 79485 Review of Systems Const Denies chills, Denies headache(s) and Denies weight loss ENT Denies headache(s) Card Denies chest pain, Denies syncope, Denies irregular heart rhythm and Denies dyspnea Resp Denies chest congestion, Denies cough and Denies dyspnea GI Denies abdominal pain, Denies change in stool character, Denies nausea and Denies vomiting Musc Denies deformity and Denies joint swelling Neuro Denies syncope and Denies headache(s) Physical exam (Primary Care) Vital Signs: Last Vital Signs Pulse 60 10/22/23 10:13 BP 130/74 10/22/23 10:13 Pulse Ox 98 10/22/23 10:13 Oxygen Delivery Method Room Air 10/22/23 10:13 BMI result Body Mass Index 30.0 Tobacco/Smoking Status: Tobacco use Status Tobacco use date assessed 10/22/23 10/22/23 10:15 Patient Tobacco Use Status Never used Tobacco 10/22/23 10:15 e-Cigarette/Vaping Use Never Used 10/22/23 10:15 PHQ-9: PHQ-9 Score PHQ-9: Total score 0 10/22/23 10:15 Thrive Assessment: Date of Thrive Assessment Date Thrive assessed 10/22/23 10/22/23 10:15 Const General: cooperative, comfortable, no acute distress and alert Neck Neck: Yes no lymphadenopathy Thyroid: Thyroid normal Resp Effort & Inspection: normal respiratory effort Auscultation: clear to auscultation bilaterally Percussion: percussion normal Cardio Jugular venous distension: no JVD Palpation: normal PMI Rate: regular rate Rhythm: regular rhythm Heart sounds: S1 normal heart sound present and S2 normal heart sound present GI Inspection: Yes normal to inspection Palpation (GI): No hepatosplenomegaly present Skin General skin exam: no rashes or lesions noted Extrem General: Yes no clubbing, cyanosis or edema Assessment and Plan Assessment & Plan (1) Gout: Code(s): M10.9 - Gout, unspecified Plan: stable; do labs (2) Hyperlipidemia: Code(s): E78.5 - Hyperlipidemia, unspecified Plan: stable; same rx (3) Hypertension: Code(s): I10 - Essential (primary) hypertension Plan: stable; same rx Orders: Orders Complete Blood Count Auto Diff Today D64.9 - Anemia, unspecified Hemoglobin A1c Today R73.9 - Hyperglycemia, unspecified Lipid Panel Today E78.5 - Hyperlipidemia, unspecified Comprehensive [place]. Panel Fast Today N28.9 - Disorder of kidney and ureter, unspecified Uric Acid Today M10.9 - Gout, unspecified Coding Level of Care Code Est Pt Level 4 (72340) Diagnoses Gout M10.9 Hyperlipidemia E78.5 Hypertension I10 Additional Codes LILLIAM-7 Assessment Billing - LILLIAM-7 Assessment Tool: LILLIAM-7 Assessment [id number] ([id number])
== END 2023-10-22 10:35 | disposition home or self-care (01) ==
PROVIDERS: PCP Internal Medicine; Visit Provider Internal Medicine
DX: M10.9 Gout, unspecified (principal); E78.5 Hyperlipidemia, unspecified; I10 Essential (primary) hypertension
CPT/HCPCS: 99214

== ENCOUNTER 2023-10-26 08:01 | Outpatient (REF) | payer MEDICARE, MEDICAID, SELFPAY ==
[2023-10-26 11:03] LABS: MANUAL DIFF FLAG NO
[2023-10-26 11:11] LABS: Basophils Percent Auto 0.8 % (0-2); Eosinophils Absolute Auto 0.2 X10*3/uL (0.0-0.4); Eosinophils Percent Auto 4.3 % (0-4); Hemoglobin 14.9 g/dl (14.0-18.0); Lymphocytes Absolute Auto 1.4 X10*3/uL (1.2-4.9); Lymphocytes Percent Auto 35.2 % (20-40); Mean Corpuscular HGB Conc 34.7 g/dl (31.0-36.0); Mean Corpuscular Volume 92.3 fL (80.0-98.0); Mean Platelet Volume 11.3 fL (9.4-12.4); Monocytes Absolute Auto 0.4 X10*3/uL (0.1-1.2); Monocytes Percent Auto 9.9 % (2-11); Neutrophils Percent Auto 49.8 % (45-73); Platelet Count 181 X10*3/uL (160-400); Red Blood Count 4.66 X10*6/uL (4.60-5.80); Red Cell Distribution Width 12.6 % (11.0-16.0); White Blood Count 3.9 X10*3/uL (4.8-10.8)
[2023-10-26 11:17] LABS: Estimated Average Glucose 100 mg/dL; Hemoglobin A1c % 5.1 % (<6.0)
[2023-10-26 11:33] LABS: Alanine Aminotransferase 29 U/L (0-40); Albumin Level 4.3 g/dL (3.5-5.0); Alkaline Phosphatase 62 U/L (39-117); Anion Gap 9 (12-20); Aspartate Amino Transferase 28 U/L (5-37); Bilirubin Total 1.1 mg/dL (0.0-1.0); Blood Urea Nitrogen 12 mg/dL (9-16); Calcium 9.5 mg/dL (8.4-10.2); Carbon Dioxide 28 mmol/L (22-29); Chloride 103 mmol/L (96-108); Cholesterol 114 mg/dL (<200); Estimated Glomerular Filt Rate > 60; Glucose Fasting 88 mg/dL (60-99); HDL Cholesterol 56 mg/dL (>40); LDL Cholesterol Calculated 45 mg/dL (<100); Potassium 3.8 mmol/L (3.3-5.1); Sodium 136 mmol/L (135-145); Total Protein 7.3 g/dL (6.5-8.0); Triglycerides 65 mg/dL (<150); Uric Acid 4.3 mg/dL (3.4-7.0)
== END 2023-10-26 08:02 | disposition home or self-care (01) ==
LOC: HO.10HDL 08:01
PROVIDERS: Visit Provider Internal Medicine
DX: D64.9 Anemia, unspecified (principal); R73.9 Hyperglycemia, unspecified; M10.9 Gout, unspecified; E78.5 Hyperlipidemia, unspecified; N28.9 Disorder of kidney and ureter, unspecified
CPT/HCPCS: 36415; 80053; 80061; 83036; 84550; 85025

== ENCOUNTER 2023-11-19 10:35 | Outpatient (AMB) | payer MEDICARE, MEDICAID, SELFPAY ==
[2023-11-19 10:57] VITALS: BP 140/84; PULSE 60; O2SAT 98
--- NOTE | 2023-11-19 10:57 | A.OFFPC_ITS ---
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 Accompanied by: Self / Same As Patient Allergies hayfever Allergy (Unknown, Uncoded 11/19/23 10:57) Unknown Medication List - Last Reconciled 11/20/23 by Petros Campbell MD allopurinol 300 mg PO DAILY aripiprazole 10 mg PO DAILY atorvastatin 20 mg PO DAILY betamethasone dipropionate 0.05% 1 appl topical BID lisinopril 20 mg PO BID loratadine (Allergy Relief (loratadine)) 10 mg PO DAILY metoprolol succinate ER 12.5 mg (1/2 x 25 mg) PO DAILY 90 days zjhiapdr-ujf-XT-lycopen-lutein 0.4 mg-300 mcg- 250 mcg ([facility] Complete Senior 50 Plus) 1 tab PO DAILY Tobacco use date assessed: 10/22/23 Dental Screening Dental Screen Date: 10/22/23 HPI PT/ Form HPI Details HTN hyperlipidemia and schizoaffective disorder; sees psych and doing well; compliant with meds [facility] Medical History Screening for prostate cancer Gout Hyperlipidemia Hypertension Physical exam Surgical History History of colonoscopy Family History Father Past heart attack Mother Cancer Social History Housing: House Alcohol intake: never Patient Tobacco Use Status: Never used Tobacco e-Cigarette/Vaping Use: Never Used Second Hand Smoke Exposure: No service: No Current occupational status: disabled Cognitive needs: No Hearing needs: No Vision needs: Yes (glasses) Questionnaire Thrive Questionnaire Date Thrive assessed: 10/22/23 LILLIAM-7 AMB Questionnaire LILLIAM-7 Date LILLIAM - 7 assessed: 10/22/23 Source: Developed by Drs. Warren Gonzalez, Brit Castro, Massimo Harvey and colleagues, with an educational sal from [employer]. Review of Systems Const Denies chills, Denies headache(s) and Denies weight loss ENT Denies headache(s) Card Denies chest pain, Denies syncope, Denies irregular heart rhythm and Denies dyspnea Resp Denies chest congestion, Denies cough and Denies dyspnea GI Denies abdominal pain, Denies change in stool character, Denies nausea and Denies vomiting Musc Denies deformity and Denies joint swelling Neuro Denies syncope and Denies headache(s) Physical exam (Primary Care) Vital Signs: Last Vital Signs Pulse 60 11/19/23 10:57 BP 140/84 H 11/19/23 10:57 Pulse Ox 98 11/19/23 10:57 Oxygen Delivery Method Room Air 11/19/23 10:57 BMI result Body Mass Index 30.0 Tobacco/Smoking Status: Tobacco use Status Tobacco use date assessed 10/22/23 11/19/23 10:58 Patient Tobacco Use Status Never used Tobacco 11/19/23 10:58 e-Cigarette/Vaping Use Never Used 11/19/23 10:58 Thrive Assessment: Date of Thrive Assessment Date Thrive assessed 10/22/23 11/19/23 10:58 Const General: cooperative, comfortable, no acute distress and alert Neck Neck: Yes no lymphadenopathy Thyroid: Thyroid normal Resp Effort & Inspection: normal respiratory effort Auscultation: clear to auscultation bilaterally Percussion: percussion normal Cardio Jugular venous distension: no JVD Palpation: normal PMI Rate: regular rate Rhythm: regular rhythm Heart sounds: S1 normal heart sound present and S2 normal heart sound present GI Inspection: Yes normal to inspection Palpation (GI): No hepatosplenomegaly present Skin General skin exam: no rashes or lesions noted Extrem General: Yes no clubbing, cyanosis or edema Assessment and Plan Assessment & Plan (1) Schizoaffective disorder: Code(s): F25.9 - Schizoaffective disorder, unspecified Plan: per psych (2) Hyperlipidemia: Code(s): E78.5 - Hyperlipidemia, unspecified Plan: stable; do labs (3) Hypertension: Code(s): I10 - Essential (primary) hypertension Plan: stable; same rx Orders: Orders Lipid Panel Today Z13.220 - Encounter for screening for lipoid disorders Complete Blood Count Auto Diff Today Z13.0 - Encounter for screening for diseases of the blood and blood-forming organs and certain disorders involving the immune mechanism Comprehensive [place]. Panel Fast Today Z13.9 - Encounter for screening, unspecified Coding Level of Care Code Est Pt Level 4 (65902) Diagnoses Schizoaffective disorder F25.9 Hyperlipidemia E78.5 Hypertension I10
== END 2023-11-19 12:50 | disposition home or self-care (01) ==
PROVIDERS: PCP Internal Medicine; Visit Provider Internal Medicine
DX: F25.9 Schizoaffective disorder, unspecified (principal); E78.5 Hyperlipidemia, unspecified; I10 Essential (primary) hypertension
CPT/HCPCS: 99214

== ENCOUNTER 2024-01-22 10:30 | Outpatient (AMB) | payer MEDICARE, MEDICAID, SELFPAY ==
[2024-01-22 10:35] VITALS: BP 120/70; PULSE 65; O2SAT 98; BMI 29.3
--- NOTE | 2024-01-22 10:35 | MHC.PC.OV ---
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 Accompanied by: Self / Same As Patient Allergies hayfever Allergy (Unknown, Uncoded 01/22/24 10:35) Unknown Medication List - Last Reconciled 01/22/24 by Petros Campbell MD allopurinol 300 mg PO DAILY aripiprazole 10 mg PO DAILY atorvastatin 20 mg PO DAILY betamethasone dipropionate 0.05% 1 appl topical BID lisinopril 20 mg PO BID loratadine (Allergy Relief (loratadine)) 10 mg PO DAILY metoprolol succinate ER 12.5 mg (1/2 x 25 mg) PO DAILY 90 days wjxowmhq-qil-MO-lycopen-lutein 0.4 mg-300 mcg- 250 mcg ([facility] Complete Senior 50 Plus) 1 tab PO DAILY Tobacco use date assessed: 10/22/23 Dental Screening Dental Screen Date: 10/22/23 HPI 3mth f/u HPI Details hyperlip on rx; due for labs PFSH Medical History Screening for prostate cancer Gout Hyperlipidemia Hypertension Physical exam Surgical History History of colonoscopy Family History Father Past heart attack Mother Cancer Social History Housing: House Alcohol intake: never Patient Tobacco Use Status: Never used Tobacco e-Cigarette/Vaping Use: Never Used Second Hand Smoke Exposure: No service: No Current occupational status: disabled Cognitive needs: No Hearing needs: No Vision needs: Yes (glasses) Questionnaire Thrive Questionnaire Date Thrive assessed: 10/22/23 LILLIAM-7 AMB Questionnaire LILLIAM-7 Date LILLIAM - 7 assessed: 10/22/23 Source: Developed by Drs. Warren Gonzalez, Brit Massimo Daniels and colleagues, with an educational sal from [employer]. Review of Systems Const Denies chills, Denies headache(s) and Denies weight loss ENT Denies headache(s) Card Denies chest pain, Denies syncope, Denies irregular heart rhythm and Denies dyspnea Resp Denies chest congestion, Denies cough and Denies dyspnea GI Denies abdominal pain, Denies change in stool character, Denies nausea and Denies vomiting Musc Denies deformity and Denies joint swelling Neuro Denies syncope and Denies headache(s) Physical exam (Primary Care) Vital Signs: Last Vital Signs Pulse 65 01/22/24 10:35 BP 120/70 01/22/24 10:35 Pulse Ox 98 01/22/24 10:35 Oxygen Delivery Method Room Air 01/22/24 10:35 BMI result Body Mass Index 29.3 Tobacco/Smoking Status: Tobacco use Status Tobacco use date assessed 10/22/23 01/22/24 10:43 Patient Tobacco Use Status Never used Tobacco 01/22/24 10:43 e-Cigarette/Vaping Use Never Used 01/22/24 10:43 Thrive Assessment: Date of Thrive Assessment Date Thrive assessed 10/22/23 01/22/24 10:43 Const General: cooperative, comfortable, no acute distress and alert Neck Neck: Yes no lymphadenopathy Thyroid: Thyroid normal Resp Effort & Inspection: normal respiratory effort Auscultation: clear to auscultation bilaterally Percussion: percussion normal Cardio Jugular venous distension: no JVD Palpation: normal PMI Rate: regular rate Rhythm: regular rhythm Heart sounds: S1 normal heart sound present and S2 normal heart sound present GI Inspection: Yes normal to inspection Palpation (GI): No hepatosplenomegaly present Skin General skin exam: no rashes or lesions noted Extrem General: Yes no clubbing, cyanosis or edema Assessment and Plan Assessment & Plan (1) Hyperlipidemia: Code(s): E78.5 - Hyperlipidemia, unspecified Plan: stable; same rx; do labs Orders: Orders Lipid Panel Today Z13.220 - Encounter for screening for lipoid disorders Medications: New azithromycin take 500 mg today (day 1), then 250 mg for 4 days (days 2-5) PO 6 tabs 0RF Coding Level of Care Code Est Pt Level 3 (60612) Diagnoses Hyperlipidemia E78.5
== END 2024-01-22 10:54 | disposition home or self-care (01) ==
PROVIDERS: PCP Internal Medicine; Visit Provider Internal Medicine
DX: E78.5 Hyperlipidemia, unspecified (principal)
CPT/HCPCS: 99213

== ENCOUNTER → 2024-04-01 09:36 | Outpatient (REF) | payer MEDICARE, MEDICAID, SELFPAY ==
--- NOTE | 2024-04-01 09:39 | CA_ITS ---
Transthoracic Echocardiogram Patient (Last, First, Middle): Shamir Oconnell O Gender: Male Date of : 1965 Age: 58 Procedure Date: 04/01/2024 Procedure Type: Transthoracic Echocardiogram Location: OP Height: 185.42 cm Weight: 94.35 kg BSA: 2.19 m2 Heart Rate: 71 bpm BP: 120 / 60 mmHg Executor Of Estate: KAYDEN Referring MD: Travis Boss MD Symptoms: I42.9 - Cardiomyopathy, unspecified Study Quality: Fair ECG Rhythm: Sinus Conclusions: - The left ventricular systolic function is normal. The calculated ejection fraction is 58% by biplane method. (in some views, appears low normal). - No obvious valvular pathology seen on this study. Findings Left Ventricle Normal left ventricular cavity size. There is mildly increased left ventricular wall thickness. The left ventricular systolic function is normal. The calculated ejection fraction is 58% by biplane method. There is no evidence of regional wall motion abnormalities. Diastolic function is normal for age. LV peak GLS -18.9%. Right Ventricle Mildly increased right ventricular cavity size. There is normal right ventricular systolic function. Atria Both atria are normal in size. Aortic Valve There is a normal trileaflet aortic valve. There is no aortic valve stenosis. There is no aortic valve regurgitation. Mitral Valve There is mild anterior mitral leaflet thickening. There is trace mitral valve regurgitation. There is no mitral valve stenosis. Pulmonic Valve The pulmonic valve is likely normal. Tricuspid Valve There is trace tricuspid valve regurgitation. There is no evidence of pulmonary hypertension. Great Vessels The asc aorta is normal in size. Venous The inferior vena cava was not well visualized. Pericardium/Pleural There is no evidence of pericardial effusion. Prior Study Comparison Changes noted compared to prior study dated: 03/28/2023. LVEF slightly higher than prior study; however prior study was with contrast and current study without. Recommendations, Care & Conclusions No obvious valvular pathology seen on this study. Measurements 2D Linear Measurements IVSd: 1.26 0.6-0.9/0.6-1.0 cm LVIDd: 5.02 3.9-5.3/4.2-5.9 cm LVIDd Index: 2.29 2.4-3.2/2.2-3.1 cm/m2 LVIDs: 3.30 2.0-3.6 cm LVPWd: 1.25 0.7-1.1 cm LA Diam: 3.80 2.7-3.8/3.0-4.0 cm LAIDs Index: 1.74 1.5-2.3 cm/m2 LV Mass: 312.47 67-162/88-224 g LV Mass Index: 142.68 43-95/49-115 g/m2 LVOT Diam: 2.30 3.0+(-)1.3 cm 2D Systolic Function EF 4C: 57.20 >55% EF 2C: 59.60 >55% EF BiP: 57.60 >55% Mitral Valve MV Pk E: 0.64 MV PK A: 0.68 MV Decel Time: 273.00 E/A: 0.90 E'Lateral: 10.30 E'Medial: 9.25 E/E' Med: 7.00 E/E' Lat: 6.20 PHT: 80.00 MVA PHT: 2.75 Decel [place]: 2.35 Aortic Valve AoV Pk Raza: 1.25 AoV Mn Raza: 0.88 AoV VTI: 0.32 AoV Pk Grad: 6.00 Aov Mn Grad: 3.00 JAZ Cont.VTI: 3.16 LVOT LVOT Pk Raza: 1.07 LVOT Mn Raza: 0.71 LVOT VTI: 0.24 LVOT Pk Grad: 5.00 LVOT Mn Grad: 2.00 LVOT Diam: 2.30 LVOT Area: 4.15 Diastolic Function MV Pk E: 0.64 MV Pk A: 0.68 E/A: 0.90 E'Medial: 9.25 E/E' Med: 7.00 E' Laterial: 10.30 E/E' Lat: 6.20 Right Ventricle TAPSE (mm): 31.50 TVS' Raza: 14.00 Great Vessels Aorta Sinus of Valsalva: 3.80 2.0-3.5 cm Ao Asc: 3.50 2.1-3.4 cm Pulmonary Valve PV Pk Raza: 1.03 Peak PV Grad: 4.00 Updated in Other Vendor System with Status of Final Heladio Carcamo MD electronically signed on 04/01/2024 12:41:14 PM with status of Final
[2024-04-01 11:06] LABS: MANUAL DIFF FLAG NO
[2024-04-01 11:42] LABS: Eosinophils Absolute Auto 0.1 X10*3/uL (0.0-0.4); Eosinophils Percent Auto 1.9 % (0-4); Hematocrit 40.2 % (42.0-52.0); Hemoglobin 13.6 g/dl (14.0-18.0); Imm Gran Abs Auto 0.01 X10*3/uL (0.00-0.03); Imm Gran Pct Auto 0.2 % (0.0-0.4); Lymphocytes Absolute Auto 1.2 X10*3/uL (1.2-4.9); Lymphocytes Percent Auto 29.4 % (20-40); Mean Corpuscular HGB Conc 33.8 g/dl (31.0-36.0); Mean Corpuscular Hemoglobin 31.6 pg (27.0-33.0); Mean Corpuscular Volume 93.3 fL (80.0-98.0); Mean Platelet Volume 10.9 fL (9.4-12.4); Monocytes Absolute Auto 0.4 X10*3/uL (0.1-1.2); Monocytes Percent Auto 10.3 % (2-11); Neutrophils Absolute Auto 2.4 x10*3/uL (2.0-8.3); Neutrophils Percent Auto 57.2 % (45-73); Platelet Count 174 X10*3/uL (160-400); Red Blood Count 4.31 X10*6/uL (4.60-5.80); Red Cell Distribution Width 12.7 % (11.0-16.0); White Blood Count 4.2 X10*3/uL (4.8-10.8)
[2024-04-01 12:33] LABS: Alanine Aminotransferase 28 U/L (0-40); Albumin Level 4.2 g/dL (3.5-5.0); Alkaline Phosphatase 67 U/L (39-117); Anion Gap 10 (12-20); Aspartate Amino Transferase 25 U/L (5-37); Blood Urea Nitrogen 13 mg/dL (9-16); Calcium 9.7 mg/dL (8.4-10.2); Carbon Dioxide 27 mmol/L (22-29); Chloride 107 mmol/L (96-108); Cholesterol 104 mg/dL (<200); Estimated Glomerular Filt Rate > 60; Glucose Fasting 85 mg/dL (60-99); HDL Cholesterol 48 mg/dL (>40); LDL Cholesterol Calculated 47 mg/dL (<100); Potassium 4.1 mmol/L (3.3-5.1); Sodium 140 mmol/L (135-145); Total Protein 7.1 g/dL (6.5-8.0); Triglycerides 49 mg/dL (<150)
== END ==
LOC: HO.CARD 09:36
PROVIDERS: PCP Internal Medicine; Visit Provider Internal Medicine Cardiovascular Disease
DX: Z13.220 Encounter for screening for lipoid disorders (principal); Z13.0 Encounter for screening for diseases of the blood and blood-forming organs and certain disorders involving the immune mechanism; Z13.6 Encounter for screening for cardiovascular disorders; I42.9 Cardiomyopathy, unspecified
CPT/HCPCS: 36415; 80053; 80061; 85025; 93306; 93356

== ENCOUNTER → 2024-04-01 09:39 | Outpatient (BNV) | payer MEDICARE, MEDICAID, SELFPAY | PROVIDERS: PCP Internal Medicine; Visit Provider Internal Medicine | DX: I42.2 Other hypertrophic cardiomyopathy (principal) | CPT/HCPCS: 93306; 93356 ==

== ENCOUNTER 2024-04-10 13:14 | Outpatient (AMB) | payer MEDICARE, MEDICAID, SELFPAY ==
--- NOTE | 2024-04-10 13:17 | A.OFFVIS_ITS ---
Vital Signs 04/10/24 13:21 Height 6 ft Weight 213 lb 13.574 oz BMI 29.0 BP 120/78 Blood Pressure Location Lt brachial Position Sitting Pulse 64 Intake Visit Reasons: 1 yr f.up Intake Note: 1 year follow-up with ekg c/o some chest tightness at rest Calculation Clerk Required: No Allergies hayfever Allergy (Unknown, Uncoded 01/22/24 10:35) Unknown Medication List - Last Reconciled 04/10/24 by Travis Boss MD allopurinol 300 mg PO DAILY aripiprazole 10 mg PO DAILY atorvastatin 20 mg PO DAILY azithromycin take 500 mg today (day 1), then 250 mg for 4 days (days 2-5) PO betamethasone dipropionate 0.05% 1 appl topical BID lisinopril 20 mg PO BID loratadine (Allergy Relief (loratadine)) 10 mg PO DAILY metoprolol succinate ER 12.5 mg (1/2 x 25 mg) PO DAILY 90 days jhxzpjeu-bon-QH-lycopen-lutein 0.4 mg-300 mcg- 250 mcg ([facility] Complete Senior 50 Plus) 1 tab PO DAILY HPI Comments Details: Luis Antonio comes for his annual follow-up. He said over the last 2 months he has been getting chest pressure in the right side of his sternal area sometimes when he exerts himself and sometimes when he is resting. Symptoms are not consistent. Recent echocardiogram shows normalized LV ejection fraction 58%. Denies any prolonged palpitation irregular heartbeat. Tolerating his medi cations well. Denies any heart failure symptoms. No lightheadedness, syncope. Takes all his medications regularly. [facility] [place] Medical History Screening for prostate cancer Gout Hyperlipidemia Hypertension Physical exam Surgical History History of colonoscopy Family History Father Past heart attack Mother Cancer Social History Housing: House Alcohol intake: never Patient Tobacco Use Status: Never used Tobacco e-Cigarette/Vaping Use: Never Used Second Hand Smoke Exposure: No service: No Current occupational status: disabled Cognitive needs: No Hearing needs: No Vision needs: Yes (glasses) Review of Systems Const Denies chills, Denies fatigue, Denies fever(s), Denies frequent falls, Denies weakness, Denies weight gain and Denies weight loss ENT Denies dizziness Card Denies chest pain, Denies leg edema, Denies lightheadedness, Denies palpitations, Denies dyspnea, Denies dyspnea on exertion, Denies orthopnea and Denies other (loss of consciousness) Resp Denies cough, Denies dyspnea and Denies dyspnea on exertion GI Denies hematochezia and Denies change in stool character Musc Denies abnormal gait, Denies muscle weakness, Denies numbness, Denies radiating pain into limb and Denies tingling Neuro Denies Abnormal speech present, Denies abnormal gait, Denies dizziness, Denies frequent falls, Denies numbness, Denies tingling and Denies weakness Endo Denies fatigue and Denies palpitations Physical Exam Vital Signs: Last Vital Signs Pulse 64 04/10/24 13:21 BP 120/78 04/10/24 13:21 BMI result Body Mass Index 29.0 Const General: cooperative, comfortable, no acute distress, alert, awake and Physically active Nutritional Appearance: average body habitus Orientation/consciousness: patient oriented x3 Limitations: no limitations Neck Neck: Yes trachea midline, Yes supple and Yes no JVD Chest Chest palpation & inspection: normal inspection of the chest Resp Effort & Inspection: normal respiratory effort Auscultation: clear to auscultation bilaterally Cardio Jugular venous distension: no JVD Palpation: normal PMI Rate: regular rate Rhythm: abnormal rhythm with ectopic beats Heart sounds: S1 normal heart sound present, S2 normal heart sound present, no click, no gallops, no murmurs and no rubs GI Auscultation: normal bowel sounds Skin General skin exam: no rashes or lesions noted Neuro General: patient oriented x3 and no focal motor deficits Speech: No Abnormal speech present Extrem General: Yes no clubbing, cyanosis or edema Psych Appearance: grossly normal Office Procedures EKG Details: EKG shows normal sinus rhythm with unifocal PVCs with fixed inter coupling [id number], Complete Assessment & Plan Assessment & Plan (1) Atypical chest pain: Code(s): R07.89 - Other chest pain Plan: Atypical chest pain in this elderly gentleman with risk factors of hypertension hyperlipidemia. Myocardial ischemia needs to be ruled out. Will suggest him to undergo exercise myocardial perfusion imaging for further evaluation for the same. This will be scheduled in near future. Further treatment based on the findings. If stress test is within normal limits would suggest GI workup. (2) Cardiomyopathy: Code(s): I42.9 - Cardiomyopathy, unspecified Category: Medical Plan: Prior cardiomyopathy issue, with recent echocardiogram shows normalized LV ejection fraction on neurohormonal modulation with lisinopril with and metoprolol. Good prognosis with this was discussed. Continue neurohormonal modulation with lisinopril and metoprolol. Avoidance of cardiotoxic agent such as alcohol was discussed. Signs and symptoms of heart failure were discussed. Follow-up echocardiogram in 1 year's time. (3) PVCs (premature ventricular contractions): Code(s): I49.3 - Ventricular premature depolarization Category: Medical Plan: PVCs without any significant symptoms at this point time. Unifocal in nature. Continue low-dose metoprolol therapy. Avoidance of stimulants was discussed. Follow up in the clinic in 1 year's time, sooner p.r.n.. Thank you for allowing me to partake in his care Coding Level of Care Code Est Pt Level 4 (79790) Diagnoses Atypical chest pain R07.89 Cardiomyopathy I42.9 PVCs (premature ventricular contractions) I49.3 CPT Codes EKG - CPT: [id number], Complete ([id number])
[2024-04-10 13:21] VITALS: BP 120/78; PULSE 64; BMI 29.0
== END 2024-04-10 13:49 | disposition home or self-care (01) ==
PROVIDERS: PCP Internal Medicine; Visit Provider Internal Medicine Cardiovascular Disease
DX: R07.89 Other chest pain (principal); I42.9 Cardiomyopathy, unspecified; I49.3 Ventricular premature depolarization
CPT/HCPCS: 93010; 99214

== ENCOUNTER → 2024-04-10 13:14 | Outpatient (BNVA) | payer MEDICARE, MEDICAID, SELFPAY | PROVIDERS: PCP Internal Medicine; Visit Provider Internal Medicine Cardiovascular Disease | DX: R07.89 Other chest pain (principal); I49.3 Ventricular premature depolarization; I10 Essential (primary) hypertension; I42.9 Cardiomyopathy, unspecified | CPT/HCPCS: 93005; 99212 ==

== ENCOUNTER 2024-05-06 09:35 | Outpatient (AMB) | payer MEDICARE, MEDICAID, SELFPAY ==
--- NOTE | 2024-05-06 09:39 | MHC.PC.OV ---
Vital Signs 05/06/24 09:40 Height 6 ft Weight 214 lb BMI 29.0 BP 142/78 H Blood Pressure Location Lt brachial Position Sitting Pulse 52 Pulse Source Pulse Oximeter Pulse Oximetry (%) 92 Oxygen Delivery Method Room Air Intake Visit Reasons: 3 month f/u Allergies hayfever Allergy (Unknown, Uncoded 01/22/24 10:35) Unknown Medication List - Last Reconciled 05/06/24 by Petros Campbell MD allopurinol 300 mg PO DAILY aripiprazole 10 mg PO DAILY atorvastatin 20 mg PO DAILY betamethasone dipropionate 0.05% 1 appl topical BID lisinopril 20 mg PO BID loratadine (Allergy Relief (loratadine)) 10 mg PO DAILY metoprolol succinate ER 12.5 mg (1/2 x 25 mg) PO DAILY 90 days zvrjpocy-izc-ZB-lycopen-lutein 0.4 mg-300 mcg- 250 mcg ([facility] Complete Senior 50 Plus) 1 tab PO DAILY Tobacco use date assessed: 10/22/23 Dental Screening Dental Screen Date: 10/22/23 HPI 3 month f/u HPI Details hyperlipidemia on rx; doing well; compliant; has a cardiac stress test coming up to evaluate chest pressure PFSH Medical History Screening for prostate cancer Gout Hyperlipidemia Hypertension Physical exam Surgical History History of colonoscopy Family History Father Past heart attack Mother Cancer Social History Housing: House Alcohol intake: never Patient Tobacco Use Status: Never used Tobacco Tobacco use type: Cigarette e-Cigarette/Vaping Use: Never Used Second Hand Smoke Exposure: No service: No Current occupational status: disabled Cognitive needs: No Hearing needs: No Vision needs: Yes (glasses) Questionnaire PHQ-9 Over the last 2 weeks, how often have you been bothered by any of the following problems? 1. Little interest or pleasure in doing things: not at all 2. Feeling down, depressed, or hopeless: not at all 3. Trouble falling or staying asleep, or sleeping too much: not at all 4. Feeling tired or having little energy: not at all 5. Poor appetite or overeating: not at all 6. Feeling bad about yourself - or that you are a failure or have let yourself or your family down: not at all 7. Trouble concentrating on things, such as reading the newspaper or watching television: not at all 8. Moving or speaking so slowly that other people could have noticed. Or the opposite - being so fidgety or restless that you have been moving around a lot more than usual: not at all 9. Thoughts that you would be better off or of hurting yourself in some way: not at all Total score: 0 02756 - PHQ-9 Billing: Yes Source: Developed by Drs. Warren Gonzalez, Brit Castro, Massimo Harvey and colleagues, with an educational sal from [employer]. Thrive Questionnaire Date Thrive assessed: 10/22/23 Are you currently unemployed and looking for a job?: I choose not to answer this question AUDIT C Alcohol Use Questionnaire (AUDIT-C) 1. How often do you have a drink containing alcohol?: Never Total Score: 0 Score Reviewed/Action Taken: Yes LILLIAM-7 AMB Questionnaire LILLIAM-7 Date LILLIAM - 7 assessed: 10/22/23 Source: Developed by Drs. Warren Gonzalez, Brit Castro, Massimo Harvey and colleagues, with an educational sal from [employer]. Review of Systems Const Denies chills, Denies headache(s) and Denies weight loss ENT Denies headache(s) Card Denies chest pain, Denies syncope, Denies irregular heart rhythm and Denies dyspnea Resp Denies chest congestion, Denies cough and Denies dyspnea GI Denies abdominal pain, Denies change in stool character, Denies nausea and Denies vomiting Musc Denies deformity and Denies joint swelling Neuro Denies syncope and Denies headache(s) Physical exam (Primary Care) Vital Signs: Last Vital Signs Pulse 52 05/06/24 09:40 BP 142/78 H 05/06/24 09:40 Pulse Ox 92 05/06/24 09:40 Oxygen Delivery Method Room Air 05/06/24 09:40 BMI result Body Mass Index 29.0 Tobacco/Smoking Status: Tobacco use Status Tobacco use date assessed 10/22/23 05/06/24 09:44 Patient Tobacco Use Status Never used Tobacco 05/06/24 09:44 Tobacco use type Cigarette 05/06/24 09:44 e-Cigarette/Vaping Use Never Used 05/06/24 09:44 PHQ-9: PHQ-9 Score PHQ-9: Total score 0 05/06/24 09:44 Thrive Assessment: Date of Thrive Assessment Date Thrive assessed 10/22/23 05/06/24 09:44 Const General: cooperative, comfortable, no acute distress and alert Neck Neck: Yes no lymphadenopathy Thyroid: Thyroid normal Resp Effort & Inspection: normal respiratory effort Auscultation: clear to auscultation bilaterally Percussion: percussion normal Cardio Jugular venous distension: no JVD Palpation: normal PMI Rate: regular rate Rhythm: regular rhythm Heart sounds: S1 normal heart sound present and S2 normal heart sound present GI Inspection: Yes normal to inspection Palpation (GI): No hepatosplenomegaly present Skin General skin exam: no rashes or lesions noted Extrem General: Yes no clubbing, cyanosis or edema Coding Level of Care Code Est Pt Level 3 (63252) Diagnoses Hyperlipidemia E78.5 Assessment & Plan Assessment & Plan (1) Hyperlipidemia: Code(s): E78.5 - Hyperlipidemia, unspecified Category: Medical Plan: stable; same rx Orders: Orders Lipid Panel Today Z13.220 - Encounter for screening for lipoid disorders
[2024-05-06 09:40] VITALS: BP 142/78; PULSE 52; O2SAT 92; BMI 29.0
== END 2024-05-06 09:57 | disposition home or self-care (01) ==
PROVIDERS: PCP Internal Medicine; Visit Provider Internal Medicine
DX: E78.5 Hyperlipidemia, unspecified (principal)

== ENCOUNTER → 2024-05-06 09:35 | Outpatient (BNVA) | payer MEDICARE, MEDICAID, SELFPAY | PROVIDERS: PCP Internal Medicine; Visit Provider Internal Medicine | DX: E78.5 Hyperlipidemia, unspecified (principal) | CPT/HCPCS: 96127; 99212 ==

== ENCOUNTER 2024-06-10 10:16 | Outpatient (AMB) | payer MEDICARE, MEDICAID, SELFPAY ==
[2024-06-10 10:18] VITALS: BP 136/76; PULSE 66; O2SAT 96; BMI 28.5
--- NOTE | 2024-06-10 10:18 | A.OFFPC_ITS ---
Vital Signs 06/10/24 10:18 Height 6 ft Weight 210 lb BMI 28.5 BP 136/76 Blood Pressure Location Lt brachial Position Sitting Pulse 66 Pulse Source Pulse Oximeter Pulse Oximetry (%) 96 Oxygen Delivery Method Room Air Intake Visit Reasons: Cough follow-up Intake Note: Pt reports his dry cough not going away despite finishing antibiotics. 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 Accompanied by: Self / Same As Patient Allergies hayfever Allergy (Unknown, Uncoded 06/10/24 10:19) Unknown Medication List - Last Reconciled 06/10/24 by Petros Campbell MD allopurinol 300 mg PO DAILY aripiprazole 10 mg PO DAILY atorvastatin 20 mg PO DAILY benzonatate 100 mg PO TID PRN betamethasone dipropionate 0.05% 1 appl topical BID lisinopril 20 mg PO BID loratadine (Allergy Relief (loratadine)) 10 mg PO DAILY metoprolol succinate ER 12.5 mg (1/2 x 25 mg) PO DAILY 90 days hlexhxbh-iqg-DZ-lycopen-lutein 0.4 mg-300 mcg- 250 mcg ([facility] Complete Senior 50 Plus) 1 tab PO DAILY omeprazole 20 mg PO DAILY Tobacco use date assessed: 10/22/23 Dental Screening Dental Screen Date: 10/22/23 HPI Cough follow-up HPI Details chronic cough for a month; do dyspnea PFSH Medical History Screening for prostate cancer Gout Hyperlipidemia Hypertension Physical exam Surgical History History of colonoscopy Family History Father Past heart attack Mother Cancer Social History Housing: House Alcohol intake: never Patient Tobacco Use Status: Never used Tobacco Tobacco use type: Cigarette e-Cigarette/Vaping Use: Never Used Second Hand Smoke Exposure: No service: No Current occupational status: disabled Cognitive needs: No Hearing needs: No Vision needs: Yes (glasses) Questionnaire Thrive Questionnaire Date Thrive assessed: 10/22/23 Are you currently unemployed and looking for a job?: I choose not to answer this question LILLIAM-7 AMB Questionnaire LILLIAM-7 Date LILLIAM - 7 assessed: 10/22/23 Source: Developed by Drs. Warren Gonzalez, Brit Castro, Massimo Harvey and colleagues, with an educational sal from [employer]. Review of Systems Const Denies chills, Denies headache(s) and Denies weight loss ENT Denies headache(s) Card Denies chest pain, Denies syncope, Denies irregular heart rhythm and Denies dyspnea Resp Denies chest congestion, Denies cough and Denies dyspnea GI Denies abdominal pain, Denies change in stool character, Denies nausea and Denies vomiting Musc Denies deformity and Denies joint swelling Neuro Denies syncope and Denies headache(s) Physical exam (Primary Care) Vital Signs: Last Vital Signs Pulse 66 06/10/24 10:18 BP 136/76 06/10/24 10:18 Pulse Ox 96 06/10/24 10:18 Oxygen Delivery Method Room Air 06/10/24 10:18 BMI result Body Mass Index 28.5 Tobacco/Smoking Status: Tobacco use Status Tobacco use date assessed 10/22/23 06/10/24 10:24 Patient Tobacco Use Status Never used Tobacco 06/10/24 10:24 Tobacco use type Cigarette 06/10/24 10:24 e-Cigarette/Vaping Use Never Used 06/10/24 10:24 Thrive Assessment: Date of Thrive Assessment Date Thrive assessed 10/22/23 06/10/24 10:24 Const General: cooperative, comfortable, no acute distress and alert Neck Neck: Yes no lymphadenopathy Thyroid: Thyroid normal Resp Effort & Inspection: normal respiratory effort Auscultation: clear to auscultation bilaterally Percussion: percussion normal Cardio Jugular venous distension: no JVD Palpation: normal PMI Rate: regular rate Rhythm: regular rhythm Heart sounds: S1 normal heart sound present and S2 normal heart sound present GI Inspection: Yes normal to inspection Palpation (GI): No hepatosplenomegaly present Skin General skin exam: no rashes or lesions noted Extrem General: Yes no clubbing, cyanosis or edema Coding Level of Care Code Est Pt Level 3 (36107) Diagnoses Cough R05.9 Assessment & Plan Assessment & Plan (1) Cough: Code(s): R05.9 - Cough, unspecified Plan: cxr to be obtined; omeprazole rx Orders: Orders XR chest 2V Today R05.9 - Cough, unspecified Medications: New omeprazole 20 mg PO DAILY 30 tabs 4RF
== END 2024-06-10 10:48 | disposition home or self-care (01) ==
PROVIDERS: PCP Internal Medicine; Visit Provider Internal Medicine
DX: R05.9 Cough, unspecified (principal)

== ENCOUNTER 2024-06-10 10:16 | Outpatient (REF) | payer MEDICARE, MEDICAID, SELFPAY ==
--- NOTE | ~2024-06-10 | XR_ITS ---
EXAMINATION: XR CHEST CLINICAL INFORMATION: Cough. COMPARISON: None available. TECHNIQUE: 2 views of the chest were obtained. FINDINGS: The lungs are clear. The cardiomediastinal silhouette is normal in size. There is no pleural effusion or pneumothorax. No acute osseous abnormality. XR/XR chest 2V IMPRESSION: No acute cardiopulmonary findings. Electronically signed by: Shamir Varela MD 06/10/2024 01:01 PM [facility]
== END 2024-06-10 10:17 | disposition home or self-care (01) ==
LOC: HO.XRAY 10:16
PROVIDERS: PCP Internal Medicine; Visit Provider Internal Medicine
DX: R05.9 Cough, unspecified (principal)
CPT/HCPCS: 71046; 99212

== ENCOUNTER → 2024-06-19 09:38 | Outpatient (REF) | payer MEDICARE, MEDICAID, SELFPAY ==
--- NOTE | ~2024-06-19 | NM_ITS ---
EXERCISE MYOCARDIAL PERFUSION STUDY INDICATION: Chest pain to evaluate for myocardial ischemia TECHNIQUE: The patient was brought in for an exercise perfusion study on 06/19/2024. Patient performed exercise as per Porter protocol and was injected 30 mCi of sestamibi once target heart rate was achieved. Images were obtained using the SPECT gamma camera interlaced with the gating device. Images were obtained in supine position. Resting perfusion study was performed on 06/20/2024. Patient was administered 30 mCi of sestamibi intravenously at rest. Images were then obtained in supine position. Images obtained without without CT attenuation. Total DLP 108 mGy-cm Images were processed with the software and compared side to side in short axis, horizontal long axis and vertical long axis views. FINDINGS: Raw images were reviewed, intense subdiaphragmatic uptake most likely in the gallbladder both on rest and stress images. Contrast images is also uptake in the gastric antrum which interferes with myocardial uptake The stress perfusion study showed non attenuated images show mildly reduced uptake in the inferior wall of the LV myocardium as well as small area of focal apical wall of the LV myocardium. Attenuated corrected images show moderately reduced uptake in the apex of the LV myocardium.. The gated study shows normal LV systolic function with calculated LVEF of 52%. LV cavity is mildly dilated in size. The gated study shows normal wall thickening and contraction of all segments. Resting study shows nonattenuated images show moderately reduced uptake in the basal inferior and mildly reduced uptake in the anteroinferior as well as apex of the LV myocardium. Attenuated corrected images show diffusely reduced uptake in all segments of the LV myocardium. Severely reduced uptake in the apex of the LV myocardium.. Gating at rest reveals normal wall motion with ejection fraction at 44%. The findings are consistent with no clear reversible defect suggestive of ischemia. Apical defect could represent nontransmural infarct.. NM/NM cardiolite stress test IMPRESSION: 1. Myocardial perfusion imaging study shows no reversible ischemia. 2. Gated LVEF is 52% with stress. 3. Transient ischemic dilatation not present but LV cavity is dilated. EKG revealed no ischemia. Electronically signed by: Travis Boss MD 06/22/2024 11:04 AM [facility] [place]
--- NOTE | 2024-06-19 09:41 | CA_ITS ---
Acquisition Time: 2024-06-19 09:53:21 Total Exercise Time: 00:08:30 Test Indications: CP,PVC'S Medications: ALLOPURINOL ARIPIPRAZOLE LISINOPRIL LORATADINE METOPROLOL Protocol: RAUL Max HR: 131 BPM 82% of Pred: 159 BPM Max BP: 142/050 mmHG Max Work Load: 8.8 METS Exercise Stress Test with exercise 8 mins 30 seconds of Raul Protocol held at Stage II, increased incline to 14% and speed increase to 2.9 for the last 1 minute, achiveing 82% MPHR, with moderate SOB, without chest discomfort, with very frequent PVCs and ventricular trigeminy, with normotensive response to exercise. Without any EKG changes meeting criteria for ischemia. Nuclear images pending. In recovery, breathing normalized. Test reviewed with Dr. Boss. Referred By: Travis Boss Overread By: ROSHAN DUNLAP
== END ==
LOC: HO.CARD 09:38
PROVIDERS: PCP Internal Medicine; Visit Provider Internal Medicine Cardiovascular Disease
DX: R07.89 Other chest pain (principal)
CPT/HCPCS: 78452; 93017; A9500

== ENCOUNTER → 2024-06-19 09:41 | Outpatient (BNV) | payer MEDICARE, MEDICAID, SELFPAY | PROVIDERS: PCP Internal Medicine; Visit Provider Nurse Practitioner Family | DX: I49.3 Ventricular premature depolarization (principal); R06.02 Shortness of breath | CPT/HCPCS: 78452; 93016; 93018 ==

== ENCOUNTER 2024-08-06 12:11 | Outpatient (AMB) | payer MEDICARE, MEDICAID, SELFPAY ==
[2024-08-06 12:40] VITALS: BP 120/82; PULSE 52; O2SAT 97; BMI 29.0
--- NOTE | 2024-08-06 12:40 | A.OFFPC_ITS ---
Vital Signs 08/06/24 12:40 Height 6 ft Weight 214 lb BMI 29.0 BP 120/82 Blood Pressure Location Lt brachial Position Sitting Pulse 52 Pulse Source Pulse Oximeter Pulse Oximetry (%) 97 Oxygen Delivery Method Room Air Intake Visit Reasons: 3 month f/u Portable Router Operator Required: No Accompanied by: Self / Same As Patient Allergies hayfever Allergy (Unknown, Uncoded 08/06/24 12:40) Unknown Medication List - Last Reconciled 08/06/24 by Petros Campbell MD allopurinol 300 mg PO DAILY aripiprazole 10 mg PO DAILY atorvastatin 20 mg PO DAILY benzonatate 100 mg PO TID PRN betamethasone dipropionate 0.05% 1 appl topical BID lisinopril 20 mg PO BID loratadine (Allergy Relief (loratadine)) 10 mg PO DAILY metoprolol succinate ER 12.5 mg (1/2 x 25 mg) PO DAILY 90 days tzoexvre-jqo-SL-lycopen-lutein 0.4 mg-300 mcg- 250 mcg (ABC Complete Senior 50 Plus) 1 tab PO DAILY omeprazole 20 mg PO DAILY Tobacco use date assessed: 08/06/24 Dental Screening Dental Screen Date: 08/06/24 Did you have a dental visit in the last 12 months?: Yes Did you have a dental problem in the last 6 months where you did not have access to dental care?: No Was dental information given to patient?: Patient has dentist HPI 3 month f/u HPI Details HTN on Rx; doing well and compliant [facility] Medical History Screening for prostate cancer Gout Hyperlipidemia Hypertension Physical exam Surgical History History of colonoscopy Family History Father Past heart attack Mother Cancer Social History Housing: House Alcohol intake: never Patient Tobacco Use Status: Never used Tobacco Tobacco use type: Cigarette e-Cigarette/Vaping Use: Never Used Second Hand Smoke Exposure: No service: No Current occupational status: disabled Cognitive needs: No Hearing needs: No Vision needs: Yes (glasses) Questionnaire PHQ-9 Over the last 2 weeks, how often have you been bothered by any of the following problems? 1. Little interest or pleasure in doing things: not at all 2. Feeling down, depressed, or hopeless: not at all 3. Trouble falling or staying asleep, or sleeping too much: not at all 4. Feeling tired or having little energy: not at all 5. Poor appetite or overeating: not at all 6. Feeling bad about yourself - or that you are a failure or have let yourself or your family down: not at all 7. Trouble concentrating on things, such as reading the newspaper or watching television: not at all 8. Moving or speaking so slowly that other people could have noticed. Or the opposite - being so fidgety or restless that you have been moving around a lot more than usual: not at all 9. Thoughts that you would be better off or of hurting yourself in some way: not at all Total score: 0 19667 - PHQ-9 Billing: Yes Source: Developed by Drs. Warren Gonzalez, Brit Castro, Massimo Harvey and colleagues, with an educational sal from [employer]. Thrive Questionnaire Date Thrive assessed: 08/06/24 I am a: Patient What is your living situation today?: I have a steady place to live Within the past 12 months, did the food you bought not last and you didn't have the money to get more?: Never true Within the past 12 months, did you worry whether your food would run out before you got money to buy more?: Never true Do you have trouble paying for medicines?: No Do you have trouble getting transportation to medical appointments?: No Do you have trouble paying your heating and electricity bill?: No Do you have trouble taking care of your child, family member or friend?: No Do you have trouble with day-to-day activities such as bathing, preparing meals, shopping, managing finances, etc.?: No Are you currently unemployed and looking for a job?: I choose not to answer this question Are you interested in more education?: No Please select the resources that you would like help with: None Currently or been in a relationship where the following occur: No concerns reported THRIVE Score: 0 AUDIT C Alcohol Use Questionnaire (AUDIT-C) 1. How often do you have a drink containing alcohol?: Never Total Score: 0 Score Reviewed/Action Taken: Yes LILLIAM-7 AMB Questionnaire LILLIAM-7 Date LILLIAM - 7 assessed: 08/06/24 Feeling nervous, anxious, or on edge: 0 = Not at all Not being able to stop or control worryin = Not at all Worrying too much about different things: 0 = Not at all Trouble relaxin = Not at all Being so restless that it is hard to sit still: 0 = Not at all Becoming easily annoyed or irritable: 0 = Not at all Feeling afraid as if something awful might happen: 0 = Not at all Total LILLIAM-7 score (0-4 normal; 5-9 mild; 10-14 moderate; 15-21 severe): 0 Source: Developed by Drs. Warren Gonzalez, Brit Castro, Massimo Harvey and colleagues, with an educational sal from [employer]. Review of Systems Const Denies chills, Denies headache(s) and Denies weight loss ENT Denies headache(s) Card Denies chest pain, Denies syncope, Denies irregular heart rhythm and Denies dyspnea Resp Denies chest congestion, Denies cough and Denies dyspnea GI Denies abdominal pain, Denies change in stool character, Denies nausea and Denies vomiting Musc Denies deformity and Denies joint swelling Neuro Denies syncope and Denies headache(s) Physical exam (Primary Care) Vital Signs: Last Vital Signs Pulse 52 08/06/24 12:40 BP 120/82 08/06/24 12:40 Pulse Ox 97 08/06/24 12:40 Oxygen Delivery Method Room Air 08/06/24 12:40 BMI result Body Mass Index 29.0 Tobacco/Smoking Status: Tobacco use Status Tobacco use date assessed 08/06/24 08/06/24 12:45 Patient Tobacco Use Status Never used Tobacco 08/06/24 12:45 Tobacco use type Cigarette 08/06/24 12:45 e-Cigarette/Vaping Use Never Used 08/06/24 12:45 PHQ-9: PHQ-9 Score PHQ-9: Total score 0 08/06/24 12:45 Thrive Assessment: Date of Thrive Assessment Date Thrive assessed 08/06/24 08/06/24 12:45 Currently or been in a relationship where the following occur: No concerns reported Const General: cooperative, comfortable, no acute distress and alert Neck Neck: Yes no lymphadenopathy Thyroid: Thyroid normal Resp Effort & Inspection: normal respiratory effort Auscultation: clear to auscultation bilaterally Percussion: percussion normal Cardio Jugular venous distension: no JVD Palpation: normal PMI Rate: regular rate Rhythm: regular rhythm Heart sounds: S1 normal heart sound present and S2 normal heart sound present GI Inspection: Yes normal to inspection Palpation (GI): No hepatosplenomegaly present Skin General skin exam: no rashes or lesions noted Extrem General: Yes no clubbing, cyanosis or edema Coding Level of Care Code Est Pt Level 3 (55690) Diagnoses Hypertension I10 Additional Codes PHQ-9 - 77378 - PHQ-9 Billing: Yes ([id number]) Assessment & Plan Assessment & Plan (1) Hypertension: Code(s): I10 - Essential (primary) hypertension Category: Medical Plan: stable; same rx
== END 2024-08-06 13:09 | disposition home or self-care (01) ==
PROVIDERS: PCP Internal Medicine; Visit Provider Internal Medicine
DX: I10 Essential (primary) hypertension (principal)

== ENCOUNTER → 2024-08-06 12:11 | Outpatient (BNVA) | payer MEDICARE, MEDICAID, SELFPAY | PROVIDERS: PCP Internal Medicine; Visit Provider Internal Medicine | DX: I10 Essential (primary) hypertension (principal) | CPT/HCPCS: 96127; 99212 ==

== ENCOUNTER → 2025-04-08 12:57 | Outpatient (REF) | payer MEDICARE, MEDICAID, SELFPAY ==
--- NOTE | 2025-04-08 13:00 | CA_ITS ---
Transthoracic Echocardiogram Patient (Last, First, Middle): Shamir Oconnell O Gender: Male Date of : 1965 Age: 59 Procedure Date: 04/08/2025 Procedure Type: Transthoracic Echocardiogram Location: OP Height: 182.88 cm Weight: 88.91 kg BSA: 2.11 m2 Heart Rate: 57 bpm BP: 130 / 76 mmHg Physician Office Secretary: TO Referring MD: Travis Boss MD Top Dyeing Machine Tender: Travis Boss MD Symptoms: I42.9 - Cardiomyopathy, unspecified Study Quality: Adequate ECG Rhythm: Bradycardia Conclusions: - 1. Mildly reduced LV ejection fraction of 45-50% 2. Normal cardiac valvular Dopplers 3. No gross pericardial effusion Findings Left Ventricle Normal left ventricular cavity size. There is normal left ventricular wall thickness. The left ventricular systolic function is mildly decreased. The visually estimated ejection fraction is between 45-50%. Spectral Doppler is indicative of a normal filling pattern. Atria The left atrium is normal in size. There is no evidence of interatrial shunt. The right atrium is normal in size. Aortic Valve The aortic valve structure and function is likely normal. There is no aortic valve stenosis. There is no aortic valve regurgitation. Mitral Valve There is mild anterior and posterior mitral leaflet thickening. There is trace mitral valve regurgitation. There is no mitral valve stenosis. Pulmonic Valve The pulmonic valve was not well visualized. Tricuspid Valve The tricuspid valve was not well visualized. Tricuspid regurgitation envelope is inadequate for calculation of right ventricular systolic pressure. Great Vessels All visible segments of the aorta are normal in size. The pulmonary artery was not well visualized. There is no dilatation of the ascending aorta measuring 3.40 cm. Small plaque is seen in the sino tubular ridge. Venous The inferior vena cava is normal in size and collapses greater than 50% with inspiration. Pericardium/Pleural There is no evidence of pericardial effusion. Prior Study Comparison Changes noted compared to prior study dated: 04/01/2024. LV function has mildly reduced Measurements 2D Linear Measurements IVSd: 1.03 0.6-0.9/0.6-1.0 cm LVIDd: 5.53 3.9-5.3/4.2-5.9 cm LVIDd Index: 2.62 2.4-3.2/2.2-3.1 cm/m2 LVIDs: 4.21 2.0-3.6 cm LVPWd: 0.84 0.7-1.1 cm LA Diam: 3.70 2.7-3.8/3.0-4.0 cm LAIDs Index: 1.75 1.5-2.3 cm/m2 LV Mass: 244.70 67-162/88-224 g LV Mass Index: 115.97 43-95/49-115 g/m2 LVOT Diam: 2.70 3.0+(-)1.3 cm 2D Systolic Function EF 4C: 47.60 >55% EF 2C: 51.20 >55% EF BiP: 48.90 >55% Mitral Valve MV Pk E: 0.45 MV PK A: 0.39 MV Decel Time: 255.00 E/A: 1.10 E'Lateral: 9.79 E'Medial: 8.38 E/E' Med: 5.30 E/E' Lat: 4.60 PHT: 75.00 MVA PHT: 2.93 Decel Bonner: 1.75 Aortic Valve AoV Pk Raza: 1.19 AoV Mn Raza: 0.88 AoV VTI: 0.26 AoV Pk Grad: 6.00 Aov Mn Grad: 3.00 JAZ Cont.VTI: 5.55 LVOT LVOT Pk Raza: 1.14 LVOT Mn Raza: 0.75 LVOT VTI: 0.25 LVOT Pk Grad: 5.00 LVOT Mn Grad: 3.00 LVOT Diam: 2.70 LVOT Area: 5.73 Diastolic Function MV Pk E: 0.45 MV Pk A: 0.39 E/A: 1.10 E'Medial: 8.38 E/E' Med: 5.30 E' Laterial: 9.79 E/E' Lat: 4.60 Right Ventricle TAPSE (mm): 30.10 TVS' Raza: 15.40 Great Vessels Aorta Sinus of Valsalva: 3.90 2.0-3.5 cm Ao Asc: 3.40 2.1-3.4 cm Updated in Other Vendor System with Status of Final Travis Boss MD electronically signed on 04/09/2025 11:15:36 AM with status of Final
--- OUTSIDE RECORDS SUMMARY | 2025-04-08 15:58 | XMS_ITS | Patient Health Record ---
Author Organization [facility] Address [address] [place] [id number] Care Team Providers Care Photoengraving Machine Operator/Tender Name Role Phone Debbie BAE, Wild Primary Care Provider Mildred Warren Stanley Unavailable [phone] Allergies Allergen (clinical drug ingredient) Drug/Non Drug Allergy documented on EMR Reaction Allergy Type Onset Date Status Latex latex (uncoded) Unknown Allergy Acti ve Reason For Referral No Information Medications Medication SIG (Take, Route, Frequency, Duration) Notes Start Date End Date Status Betamethasone Valerate 0.1 % 1 application to affected area Externally Once a day Active DOK 100 MG 1 capsule as needed Orally Once a day for 30 day(s) Active ARIPiprazole 15 MG 1 tablet Orally Once a day for 30 day(s) Active Lipitor 20 MG 1 tablet Orally Once a day for 30 day(s) Active Loratadine 10 MG 1 tablet Orally Once a day for 30 day(s) Active Lisinopril 20 MG 1 tablet Orally Once a day for 30 day(s) Active Aspir-Low 81 MG 1 tablet Orally Once a day for 30 day(s) Active Allopurinol 100 MG as directed Orally o nce a day Active Immunizations Vaccine Route Administration Date Status Comme nts Influenza Unknown 02/27/2019 Administered Social History Tobacco Use: Social History Observation Description Date Details (start date - stop date) Never Smoker NA - NA Tobacco Use/Smoking Question Answer Notes Patient is a nonsmoker Alcohol Screen Question Answer Notes Did you have a drink containing alcohol in the p ast year? No Points 0 Interpretation Negative Section Notes: Nonsmoker; no sig alcohol Problems Problem Type SNOMED Code ICD Code Onset Dates Problem Status W/U Status Risk Notes Problem 13081965 Rectal bleed (K62.5) Active confirmed Problem 089336397 Anemia, unspecified type (D64.9) Active confirmed Plan Of Treatment Future Test Test Name Order Date COLONOSCOPY 04/17/2019 Insurance Providers Payer Name Payer Address Payer Phone Subscriber Number Group Number Insured Name Patient Relationship to Insured Coverage Start Date Coverage End Date MEDICARE OF [place] [address] [place] [id number] MONICA LORA Self - patient is the insured MEDICAID OF [facility] [address] [place] [address] [id number] MONICA LORA Self - patient is the insured Medical (General) History Medical History History ICD Code Hypertension Hyperlipidemia Depression/Schizophrenia Osteoarthritis Denies [place],DM,CVA,Lung disease,renal dise ase Normocytic anemia with a hem oglobin of 12.8 in December 2018-normal Iron, B12, and Folate in 12/2018 Surgical History Surgery Date(Month/Year) Oral surgery
== END ==
LOC: HO.CARD 12:57
PROVIDERS: Visit Provider Internal Medicine Cardiovascular Disease
DX: I42.9 Cardiomyopathy, unspecified (principal)
CPT/HCPCS: 93306

== ENCOUNTER → 2025-04-08 13:00 | Outpatient (BNV) | payer MEDICARE, MEDICAID, SELFPAY | PROVIDERS: Visit Provider Internal Medicine Cardiovascular Disease | DX: I42.9 Cardiomyopathy, unspecified (principal) | CPT/HCPCS: 93306 ==

== ENCOUNTER 2025-05-27 11:02 | Outpatient (AMB) | payer MEDICARE, MEDICAID, SELFPAY ==
[2025-05-27 11:07] VITALS: BP 120/72; PULSE 65; BMI 29.0
--- NOTE | 2025-05-27 11:07 | A.OFFVIS_ITS ---
Vital Signs 05/27/25 11:07 Height 6 ft Weight 213 lb 13.574 oz BMI 29.0 BP 120/72 Blood Pressure Location Lt brachial Position Sitting Pulse 65 Intake Visit Reasons: 1 yr f/up Intake Note: 1 year follow-up with ekg had covid a few months ago a liitle less active Surveillance Specialist Required: No Allergies hayfever Allergy (Unknown, Uncoded 08/06/24 12:40) Unknown Medication List - Last Reconciled 05/27/25 by Travis Boss MD allopurinol 300 mg PO DAILY aripiprazole 7 mg PO DAILY atorvastatin 20 mg PO DAILY benzonatate 100 mg PO TID PRN betamethasone dipropionate 0.05% 1 appl topical BID lisinopril 20 mg PO BID metoprolol succinate ER 12.5 mg (1/2 x 25 mg) PO DAILY lrfzuuoy-fdw-JE-lycopen-lutein 0.4 mg-300 mcg- 250 mcg (ABC Complete Senior 50 Plus) 1 tab PO DAILY omeprazole 20 mg PO DAILY HPI Comments Details: Luis Antonio comes for follow-up. He said recently he has not been exercising much because of his said he had some injury and might need surgery. He is not sure. This is affecting his overall exercise activity. He said he is still completed a 5K. He has no trouble shortness of breath or chest pain. No prolonged palpitation irregular heartbeat. Most recent echocardiogram showed mildly reduced LV ejection fraction. He has no orthopnea, PND, leg edema. Takes all his medications. [facility] Medical History Screening for prostate cancer Gout Hyperlipidemia Hypertension Physical exam Surgical History History of colonoscopy Family History (Reviewed 05/27/25 @ 11: by Travis Boss MD) Father Past heart attack Mother Cancer Social History (Reviewed 05/27/25 @ 11: by Travis Boss MD) Housing: House Alcohol intake: never Patient Tobacco Use Status: Never used Tobacco Tobacco use type: Cigarette e-Cigarette/Vaping Use: Never Used Second Hand Smoke Exposure: No service: No Current occupational status: disabled Cognitive needs: No Hearing needs: No Vision needs: Yes (glasses) Review of Systems Const Denies chills, Denies fatigue, Denies fever(s), Denies frequent falls, Denies weakness, Denies weight gain and Denies weight loss ENT Denies dizziness Card Denies chest pain, Denies leg edema, Denies lightheadedness, Denies palpitations, Denies dyspnea, Denies dyspnea on exertion, Denies orthopnea and Denies other (loss of consciousness) Resp Denies cough, Denies dyspnea and Denies dyspnea on exertion GI Denies hematochezia and Denies change in stool character Musc Denies abnormal gait, Denies muscle weakness, Denies numbness, Denies radiating pain into limb and Denies tingling Neuro Denies Abnormal speech present, Denies abnormal gait, Denies dizziness, Denies frequent falls, Denies numbness, Denies tingling and Denies weakness Endo Denies fatigue and Denies palpitations Physical Exam Vital Signs: Last Vital Signs Pulse 65 05/27/25 11:07 BP 120/72 05/27/25 11:07 BMI result Body Mass Index 29.0 Const General: cooperative, comfortable, no acute distress, alert, awake and Physically active Nutritional Appearance: average body habitus Orientation/consciousness: patient oriented x3 Limitations: no limitations Neck Neck: Yes trachea midline, Yes supple and Yes no JVD Chest Chest palpation & inspection: normal inspection of the chest Resp Effort & Inspection: normal respiratory effort Auscultation: clear to auscultation bilaterally Cardio Jugular venous distension: no JVD Palpation: normal PMI Rate: regular rate Rhythm: abnormal rhythm with ectopic beats Heart sounds: S1 normal heart sound present, S2 normal heart sound present, no click, no gallops, no murmurs and no rubs GI Auscultation: normal bowel sounds Skin General skin exam: no rashes or lesions noted Neuro General: patient oriented x3 and no focal motor deficits Speech: No Abnormal speech present Extrem General: Yes no clubbing, cyanosis or edema Psych Appearance: grossly normal Office Procedures EKG Details: EKG shows normal sinus rhythm with normal EKGs [id number], Complete Assessment & Plan Assessment & Plan (1) Cardiomyopathy: Code(s): I42.9 - Cardiomyopathy, unspecified Category: Medical Plan: Mild cardiomyopathy without signs or symptoms of heart failure. Continue neurohormonal modulation with lisinopril and metoprolol. No additional therapy indicated. We discussed about presence of cardiomyopathy. No restriction to activity level. Signs and symptoms of heart failure were discussed. (2) PVCs (premature ventricular contractions): Code(s): I49.3 - Ventricular premature depolarization Category: Medical Plan: PVCs without any obvious symptoms at this point time. Advised to continue metoprolol therapy. Avoidance of stimulants was discussed. Stress mitigation strategies were discussed. Will follow up in the clinic in 1 year's time, sooner PRN. Thank you for allowing me to partake in his care Coding Level of Care Code Est Pt Level 4 (23094) Complex EM visit Add On G2211 Diagnoses Cardiomyopathy I42.9 PVCs (premature ventricular contractions) I49.3 CPT Codes EKG - CPT: 50199-Pgxhbitmzqbeizuur, Complete ([id number])
--- OUTSIDE RECORDS SUMMARY | 2025-05-27 13:59 | XMS_ITS | Clinical Summary ---
Author Organization [facility] Address [address] [place] [address] Phone Care Team Providers Care B Operator Name Role Phone Melly Holt DONN Primary Care Provider [phone] Allergies No known active allergies Medications ARIPiprazole (ABILIFY) 10 mg tablet Take 1 tablet (10 mg total) by mouth 1 (one) time each day. Active fexofenadine (JOSE) 180 mg tablet Take 1 tablet (180 mg total) by mouth 1 (one) time each day. Active allopurinoL (ZYLOPRIM) 300 mg tablet Take 1 tablet (300 mg total) by mouth 1 (one) time each day. Active atorvastatin (LIPITOR) 20 mg tablet Take 1 tablet (20 mg total) by mouth at bedtime. Active lisinopriL (PRINIVIL,ZESTR IL) 20 mg tablet Take 1 tablet (20 mg total) by mouth 1 (one) time each day. Active metoprolol succinate (TOPROL-XL) 25 mg 24 hr tablet Take 1 tablet (25 mg total) by mouth 1 (one) time each day. Do not crush or chew. Active omeprazole (PriLOSEC) [address] capsule Take 1 capsule (20 mg total) by mouth 1 (one) time each day. Do not crush or chew. Active ARIPiprazole (ABILIFY) 10 mg tablet Take 1 tablet (10 mg total) by mouth 1 (one) time each day. 05/08/20 25 Discontinu ed(Melody billy) Encounters Date Type Department Care Team Description 05/08/2025 Telephone Gastroenterology - [address] [place] [id number] Bakari Whitney MD from Last 3 Months Social History Tobacco Use Types Packs/Day Years Used Date Smoking Tobacco: Never Assessed Sex and Gender Information Value Date Recorded Sex Assigned at Not on file Legal Sex Male 2:41 PM EDT Gender Identity Not on file Sexual Orientation Not on file Plan of Treatment Upcoming Encounters Date Type Department Care Team (Late st Contact Info) Description 07/14/2025 2:00 PM EST Appointment [facility] Endoscopy [address] [place] [address] Gage Yee MD [facility] [place] [address] Health Maintenance Due Date Last Done Comments Colorectal Cancer Screening: Colonoscopy 1965 DTaP,Tdap,and Td Vaccines (1 - Tdap) 1982 Pneumococcal Vaccine: 50+ Ye ars (1 of 1 - PCV) 2013 Zoster Vaccines (1 of 2) 2013 Depression Screening 07/30/2024 COVID-19 Vaccine (1 - 2023-2 5 season) 2025 Influenza Vaccine (#1) 2025 Cholesterol Screening (Lipid Panel) 04/23/2025 HIV Screening 04/23/2025 Hepatitis C Screening 04/23/2025 Medicare Annual Wellness Visit 04/23/2025 Social Influencers of Health Screening 04/23/2025 RSV Immunization Adult Patie nts (1 - 1-dose 75+ series) 2038 HIB Vaccines Aged Out No longer eligi ble based on patient's age to complete this topic HPV Vaccines Aged Out No longer eligi ble based on patient's age to complete this topic Hepatitis A Vaccines Aged Out No long er eligible based on patient's age to complete this topic Hepatitis B Vaccines Aged Out No long er eligible based on patient's age to complete this topic IPV Vaccines Aged Out No longer eligi ble based on patient's age to complete this topic MMR Vaccines Aged Out No longer eligi ble based on patient's age to complete this topic Meningococcal ACWY Vaccine Aged Out N o longer eligible based on patient's age to complete this topic Meningococcal B Vaccine Aged Out No l onger eligible based on patient's age to complete this topic RSV Immunization Patients Un sally 20 months Aged Out No longer eligible b ased on patient's age to complete this topic Varicella Vaccines Aged Out No longer eligible based on patient's age to complete this topic Goals Goal Patient Goal Type Associated Problems Recent Progress Patient-Stated? Author Autogenerat ed Goal Care Plan Autogenerated Problem No AgAguilaran Additional Health Concerns Active Problems Noted Date Diagnosed Date Autogenerated Problem 05/25/2025 Insurance MEDICARE [place]ICAID - [place] Care Teams B Operator Relationship Specialty Start Date End Date Melly Holt FNP [address] [place] [id number] PCP - General Family Medicine 05/08/25
--- OUTSIDE RECORDS SUMMARY | 2025-05-27 13:59 | XMS_ITS | Patient Health Record ---
Author Organization [facility] Address [address] [place] [phone] Care Team Providers Care Accountant Supervisor Name Role Phone Debbie BAE, Wild Primary Care Provider Mildred Warren Stanley Unavailable [phone] Allergies Allergen (clinical drug ingredient) Drug/Non Drug [...] 1 capsule as needed Orally Once a day; Duration: 30 day(s) Active ARIPiprazole 15 MG 1 tablet Orally Once a day; Duration: 30 day(s) Active Lipitor 20 MG 1 tablet Orally Once a day; Duration: 30 day(s) Active Loratadine 10 MG 1 tablet Orally Once a day; Duration: 30 day(s) Active Lisinopril 20 MG 1 tablet Orally Once a day; Duration: 30 day(s) Active Aspir-Low 81 MG 1 tablet Orally Once a day; Duration: 30 day(s) Active Allopurinol 100 MG as [...] Problem Status W/U Status Risk Notes Problem Hemorrhage of rectum and anus (038422113) Rectal bleed (K62.5) Active confirmed Problem Anemia (146803806) Anemia, unspecified type (D64.9) Active confirmed Plan Of Treatment Future Test Test Name Order Date COLONOSCOPY 04/17/2019 Insurance Providers Payer Name Payer Address Payer Phone Subscriber Number Group Number Insured Name Patient Relationship to Insured Coverage Start Date Coverage End Date MEDICARE OF [place] [address] [place] [id number] [phone] [id number] MONICA LORA Self - patient is the insured [facility]ICAID [facility] [address] [place] [phone] [id number] MONICA LORA Self - patient is the insured Medical (General) History Medical History History ICD Code Hypertension Hyperlipidemia Depression/Schizophrenia Osteoarthritis Denies HI,DM,CVA,Lung disease,renal dise ase Normocytic anemia with a hem oglobin of 12.8 in December 2018-normal Iron, B12, and Folate in 12/2018 Surgical History Surgery Date(Month/Year) Oral surgery
== END 2025-05-27 11:28 | disposition home or self-care (01) ==
LOC: HO.HCS 11:03
PROVIDERS: Visit Provider Internal Medicine Cardiovascular Disease
DX: I42.9 Cardiomyopathy, unspecified (principal); I49.3 Ventricular premature depolarization
CPT/HCPCS: 93010; 99214; G2211

== ENCOUNTER → 2025-05-27 11:02 | Outpatient (BNVA) | payer MEDICARE, MEDICAID, SELFPAY | PROVIDERS: Visit Provider Internal Medicine Cardiovascular Disease | DX: I42.9 Cardiomyopathy, unspecified (principal); I49.3 Ventricular premature depolarization | CPT/HCPCS: 93005; 99212 ==